=== PATIENT | female | born 1925 | race Caucasian/White ===

== ENCOUNTER 2017-03-22 16:50 | Emergency (ER) | payer MEDICARE ==
[2017-03-22 16:56] VITALS: RESP 18
--- NOTE | 2017-03-22 17:49 | ED ---
General Adult HPI - General Chief complaint: Head Injury Stated complaint: Fall-Head Pain Time Seen by Provider: 03/22/17 17:12 Source: patient, family, RN notes reviewed Mode of arrival: wheelchair Limitations: no limitations - History of Present Illness Initial comments: Patient 89-year-old female who presents emergency room today with a chief complaint of a fall and head injury that occurred just prior to arrival. She does admit that she missed a step outside: [place] left side. She does admit to pain to the left knee, left wrist, left elbow, left shoulder. Also admits to contusion and some bruising to the left side of her forehead and face. Patient states he was no loss consciousness. She denies any other complaints or symptoms. Patient denies any recent fever, chills, shortness of breath, chest pain, back pain, abdominal pain, nausea or vomiting, visual changes, or any other complaints. - Related Data Home Medications Medication Instructions Recorded Confirmed Citalopram Hydrobromide [CeleXA] 10 mg PO DAILY 11/09/13 03/22/17 Donepezil [Aricept] 10 mg PO HS 11/09/13 03/22/17 Memantine [Namenda] 10 mg PO BID 11/09/13 03/22/17 Olmesartan [Benicar] 20 mg PO DAILY 11/26/13 03/22/17 Albuterol Inhaler [Ventolin Hfa 2 puff INHALATION RT-Q4H PRN 03/22/17 03/22/17 Inhaler] Albuterol Nebulized [Ventolin 2.5 mg INHALATION RT-BID PRN 03/22/17 03/22/17 Nebulized] Calcium Carbonate [Calcium] 600 mg PO DAILY 03/22/17 03/22/17 Cetirizine HCl [Zyrtec] 10 mg PO DAILY 03/22/17 03/22/17 Coconut Oil 1 tab PO DAILY 03/22/17 03/22/17 Cranberry Fruit Concentrate [Azo 250 mg PO DAILY 03/22/17 03/22/17 Cranberry] L.acidoph,Paracasei, B.lactis 1 cap PO DAILY 03/22/17 03/22/17 [Probiotic] Montelukast [Singulair] 10 mg PO HS 11/25/17 11/25/17 Multivitamins, Thera [Multivitamin 1 tab PO DAILY 03/22/17 03/22/17 (formulary)] Allergies Allergy/AdvReac Type Severity Reaction Status Date / Time naproxen [From Aleve] Allergy Rash/Hives Verified 03/22/17 17:08 morphine AdvReac Itching Verified 03/22/17 17:08 Review of Systems ROS Statement: Those systems with pertinent positive or pertinent negative responses have been documented in the HPI. ROS Other: All systems not noted in ROS Statement are negative. Past Medical History Past Medical History: Dementia, GERD/Reflux, Hypertension Additional Past Medical History / Comment(s): left knee pain, back fx, History of Any Multi-Drug Resistant Organisms: None Reported Past Surgical History: Appendectomy, Cholecystectomy Past Anesthesia/Blood Transfusion Reactions: No Reported Reaction Past Psychological History: Depression Smoking Status: Never smoker Past Alcohol Use History: None Reported Past Drug Use History: None Reported General Exam - General Exam Comments Initial Comments: General: The patient is awake and alert, in no distress, and does not appear acutely ill. Eye: Pupils are equal, round and reactive to light, extra-ocular movements are intact. No nystagmus. There is normal conjunctiva bilaterally. No signs of icterus. Ears, nose, mouth and throat: There are moist mucous membranes and no oral lesions. Neck: The neck is supple, there is no tenderness or JVD. Cardiovascular: There is a regular rate and rhythm. No murmur, rub or gallop is appreciated. Respiratory: Lungs are clear to auscultation, respirations are non-labored, breath sounds are equal. No wheezes, stridor, rales, or rhonchi. Musculoskeletal: Mild swelling over the lateral anterior aspect of the left knee. Locally tender anteriorly no other bony tenderness to the left lower extremity. No tenderness to the left hip or ankle. Mildly tender over the distal radius. Shows full range of motion of left shoulder, elbow, wrist and hand. Locally tender over the distal radius. Mild tenderness to the posterior olecranon. Mild tenderness to the anterior aspect of the left shoulder. Normal appearance of the cervical, thoracic, lumbar spine with no step-offs deformities. No tenderness midline in these areas. Patient does have some swelling bruising to the left side of forehead. Sensations intact pulses equal bilaterally 2+. Neurological: A&O x 3. CN II-XII intact, There are no obvious motor or sensory deficits. Coordination appears grossly intact. Speech is normal. Skin: Skin is warm and dry and no rashes or lesions are noted. Psychiatric: Cooperative, appropriate mood & affect, normal judgment. Limitations: no limitations Course Vital Signs 03/22/17 16:50 Temperature 98.3 F Pulse Rate 80 Respiratory 18 Rate Blood Pressure 188/84 O2 Sat by Pulse 97 Oximetry Medical Decision Making - Medical Decision Making Case discussed in detail with attending physician Dr. Smith. Patient's CT of the head, neck, facial bones negative for any acute abnormalities. Patient's x- rays of the left wrist, elbow, and shoulder were negative for any acute abnormality. Patient's x-ray of the left knee shows possible sprain versus loose body. Patient been ambulatory here in emergency room. [place] to be old injury. Patient will be discharged home. Signs and symptoms of concussion were discussed with the patient and her daughters at bedside. Patient given Tylenol prior to discharge. Advised that if any symptoms increase or worsen that she should follow family doctor or return here to emergency room. Patient and family state understanding and are in agreement. Disposition Clinical Impression: Fall, Knee contusion, Wrist sprain, Head injury Disposition: HOME SELF-CARE Condition: Good Instructions: Concussion (ED) Additional Instructions: Please use medication as discussed. Please follow-up with family doctor in the next 2 days of symptoms have not improved. Please return to emergency room if the symptoms increase or worsen or for any other concerns. Referrals: Geo Mccabe MD [Primary Care Provider] - 1-2 days Time of Disposition: 18:29
--- NOTE | 2017-03-22 17:53 | CT ---
EXAMINATION TYPE: CT brain basil wo con DATE OF EXAM: 03/22/2017 COMPARISON: 05/27/2015 HISTORY: 89-year-old female with pain after Fall injury. CT DLP: 1312.3 mGycm Automated exposure control for dose reduction was used. Technique: Examination of the head was done in axial plane without intravenous contrast. Coronal and sagittal reconstructions performed. CT of the cervical spine was obtained in axial plane without intravenous injection of contrast mater ial. Coronal and sagittal reformatted images were obtained from the axial views for evaluation of f ractures, spinal alignment and canal. FINDINGS: Head: There is no evidence of acute intracranial hemorrhage, acute ischemic changes, mass, mass-effect, or extra-axial fluid collection. There is no effacement of cerebral sulci or basal subarachnoid cister ns. There is no hydrocephalus. There is no midline shift. [place]-white matter distinction is preserv ed. Mild age-related cerebral cortical volume loss. Mild apical scarring calcifications in the carotid si phons. Scleral banding on the right. Rightward nasal septal deviation. Mild mucosal thickening ethmoid air c ells. Mastoid air cells are well pneumatized. No calvarial fracture. Cervical spine: Retropharyngeal course of the ICAs. Multiple moderate disc/endplate degenerative changes especially in the mid to lower cervical spine. A lignment maintained. No acute fracture of the cervical spine. No evident spinal canal stenosis. Scattered facet and uncovertebral joint arthropathy resulting in variable mild neuroforaminal narrowi ng suggested on the left at C5-C6. Chronic heterotopic ossification along the supraspinous ligament opposite C7. Sagittal and coronal reformatted images confirm above findings. COMBINED IMPRESSION: 1. No acute intracranial abnormality seen. 2. No acute fracture or malalignment of the cervical spine. Moderate spondylotic change. 3. Facial bones to be reported separately.
--- NOTE | 2017-03-22 17:56 | CT ---
EXAMINATION TYPE: CT facial bones wo con DATE OF EXAM: 03/22/2017 COMPARISON: 05/27/2015 HISTORY: 89-year-old female with pain after Fall injury. TECHNIQUE: Contiguous axial scanning of the facial bones without IV contrast. Coronal reconstructions performed. CT DLP: 630.3 mGycm Automated exposure control for dose reduction was used. FINDINGS: Right-sided scleral banding. Rightward nasal septal deviation. Mild mucosal thickening ethmoid air ce lls. Orbits and globes, facial bones, nasal bone, and mandible appear intact. Degenerative changes of the TMJs. The zygomatic arches and pterygoid plates are intact. IMPRESSION: NO ACUTE FACIAL BONE FRACTURE. MILD CHRONIC ETHMOID SINUS DISEASE AND RIGHTWARD NASAL SEPTAL DEVIATIO N. PRIOR RIGHT-SIDED SCLERAL BANDING. BILATERAL TMJ OA.
--- NOTE | 2017-03-22 18:06 | XR ---
EXAMINATION TYPE: 3 views left shoulder. 2 views left elbow. 4 views left wrist DATE OF EXAM: 03/22/2017 COMPARISON: NONE HISTORY: 89-year-old female with pain after fall FINDINGS: Left shoulder: AC joint appears intact. Subacromial space is preserved. No acute fracture, subluxation, or dislocati on seen. Visualized left hemithorax is clear. Left elbow: No elbow joint effusion. No acute fracture or dislocation seen. Wrist: Moderate to advanced degenerative changes at the base of the thumb. Some subtle TFC and synovial calc ifications are noted and could be idiopathic or related to CPPD. The radiocarpal and distal radioulna r joints as well as the midcarpal compartment appear intact. No acute fracture or dislocation. IMPRESSION: 1. Left shoulder: No acute osseous abnormality seen. 2. Left elbow: No acute osseous abnormality seen. 3. Wrist: Moderate to advanced osteoarthritic changes at the base of the thumb. No acute osseous abno rmality seen.
--- NOTE | 2017-03-22 18:08 | XR ---
EXAMINATION TYPE: XR knee complete LT DATE OF EXAM: 03/22/2017 COMPARISON: NONE HISTORY: 89-year-old female with pain after fall TECHNIQUE: 3 views FINDINGS: Moderate loss of cartilage and joint space within the medial compartment with marginal spurring. Trac e knee joint effusion nonspecific. There is either a 1 cm loose body or intracondylar spur just below the patella on the lateral view. No acute fracture, subluxation, or dislocation seen. IMPRESSION: 1. At least moderate medial compartmental osteoarthrosis. 2. Either a 1 cm loose body or intracondylar spur just below the patella on the lateral view. 3. No acute osseous abnormality seen.
[2017-03-22] MEDS ORDERED: ACETAMINOPHEN TAB 325 MG TAB PO STA (18:27)
[2017-03-22 18:59] VITALS: BP 167/79; PULSE 75; TEMP 98.2
== END 2017-03-22 18:58 | disposition home or self-care (01) ==
LOC: EC 16:50
DX: S63.502A Unspecified sprain of left wrist, initial encounter (principal); S00.83XA Contusion of other part of head, initial encounter; S80.02XA Contusion of left knee, initial encounter; M25.522 Pain in left elbow; M25.512 Pain in left shoulder; F03.90 Unspecified dementia, unspecified severity, without behavioral disturbance, psychotic disturbance, mood disturbance, and anxiety; F32.9 Major depressive disorder, single episode, unspecified; Z79.899 Other long term (current) drug therapy; Z88.5 Allergy status to narcotic agent; Z88.6 Allergy status to analgesic agent; W19.XXXA Unspecified fall, initial encounter; Y93.01 Activity, walking, marching and hiking; Y92.89 Other specified places as the place of occurrence of the external cause
CPT/HCPCS: 70450; 70486; 72125; 99284

== ENCOUNTER → 2017-04-23 | Outpatient (CLI) | payer MEDICARE ==
--- NOTE | 2017-04-23 16:51 | CT ---
EXAMINATION TYPE: CT chest wo con DATE OF EXAM: 04/23/2017 COMPARISON: Chest x-ray April 14, 2017 and older studies. HISTORY: Cough x 8-[address] DLP: 187.00 mGycm. Automated Exposure Control for Dose Reduction was Utilized. TECHNIQUE: CT scan of the thorax is performed without IV contrast. High resolution protocol with 1 m m sequences obtained at 10 mm intervals in supine and prone positioning. FINDINGS: LUNGS: Respiratory motion artifact is seen making evaluation suboptimal. There is background mild to moderate emphysematous change. There are some peripheral reticulation and fibrosis in the lower lungs bilaterally. No pleural effusion or pneumothorax is seen. No significant bronchiectasis is identifie d. No worrisome parenchymal mass is seen. No suspicious consolidation is noted. MEDIASTINUM: Lack of IV contrast is noted to limit evaluation for mediastinal and especially hilar a denopathy. There are no definitive greater than 1 cm hilar or mediastinal lymph nodes. No cardiomeg russell or pericardial effusion is seen. Some coronary artery calcification is present which is noted mar ker for coronary artery disease. OTHER: There is a millimeter calcified splenic artery aneurysm in hilum on axial image 46 series 9. T here is simple appearing hepatic cyst posterior liver. Cholecystectomy clips are present. There is la rge exophytic cyst right kidney partially imaged on image 51 series 9. There is moderate multilevel s purring in thoracic spine.. IMPRESSION: Backwall mild to moderate emphysematous change with chronic fibrosis in the periphery of the lower lungs. No suspicious acute pulmonary process.
== END | disposition home or self-care (01) ==
LOC: RADCTMAIN 16:19
PROVIDERS: ATTEND Internal Medicine Critical Care Medicine
DX: J43.9 Emphysema, unspecified (principal); J84.10 Pulmonary fibrosis, unspecified
CPT/HCPCS: 71250

== ENCOUNTER 2017-05-09 16:40 | Inpatient (IN) | payer MEDICARE ==
[2017-05-09] MEDS ORDERED: SODIUM CHLORIDE 0.9% 1,000 ML IV STA ×2 (16:47)
[2017-05-09] MEDS ORDERED: ACETAMINOPHEN IV (For NPO) 1,000 MG in EMPTY BAG 1 BAG IVPB STA (16:47)
[2017-05-09 17:25] LABS: HCT 35.3 % (34.0-46.0); HGB 11.9 gm/dL (11.4-16.0); MCH 29.5 pg (25.0-35.0); MCHC 33.7 g/dL (31.0-37.0); MCV 87.5 fL (80.0-100.0); RBC 4.04 m/uL (3.80-5.40); WBC 5.6 k/uL (3.8-10.6)
[2017-05-09 17:26] LABS: Appearance,Urine Clear (Clear); Basophils # (A) 0.1 k/uL (0-0.2); Basophils % (A) 1 %; Bilirubin,Urine Negative (Negative); Blood,Urine Negative (Negative); Color,Urine Light Yellow; Eosinophils # (A) 0.2 k/uL (0-0.7); Eosinophils % (A) 3 %; Glucose,Urine (UA) Negative (Negative); Ketones,Urine Negative (Negative); Leukocyte Esterase,Urine Negative (Negative); Lymphocytes % (A) 35 %; Mean Platelet Volume 6.1; Monocytes # (A) 0.4 k/uL (0-1.0); Monocytes % (A) 7 %; Neutrophils # (A) 2.7 k/uL (1.3-7.7); Neutrophils % (A) 49 %; Nitrite,Urine Negative (Negative); PH, Urine 6.5 (5.0-8.0); Platelet Count 360 k/uL (150-450); Protein,Urine Negative (Negative); RDW 13.5 % (11.5-15.5); Specific Gravity,Urine 1.007 (1.001-1.035); Urobilinogen,Urine <2.0 mg/dL (<2.0)
[2017-05-09 17:32] LABS: Partial Thromboplastin Time 22.7 sec (22.0-30.0); Prothrombin Time 9.8 sec (9.0-12.0)
[2017-05-09 17:40] LABS: Albumin 4.2 g/dL (3.5-5.0); Calcium 9.8 mg/dL (8.4-10.2); Potassium 5.5 mmol/L (3.5-5.1); Total Bilirubin 0.2 mg/dL (0.2-1.3); Total Protein 7.4 g/dL (6.3-8.2)
--- NOTE | 2017-05-09 17:40 | XR ---
EXAMINATION TYPE: XR chest 2V DATE OF EXAM: 05/09/2017 COMPARISON: Prior chest x-ray 04/14/[address] chest 04/23/2017 HISTORY: Chest pain and shortness of breath TECHNIQUE: Frontal and lateral views of the chest are obtained. FINDINGS: There is no focal air space opacity, pleural effusion, or pneumothorax seen. The cardiac silhouette size is within normal limits. There is increased AP diameter of the chest, prominent lung volumes suggesting underlying COPD. Interstitial lung disease is again noted. The aorta is dense and tortuous. There are overlying cardiac leads. The osseous structures are intact. IMPRESSION: Interstitial lung disease and emphysema
--- NOTE | 2017-05-09 17:49 | ED ---
General Adult HPI - General Chief complaint: Chest Pain Stated complaint: Chest Pain Time Seen by Provider: 05/09/17 16:46 Source: patient, family, RN notes reviewed, old records reviewed Mode of arrival: wheelchair Limitations: no limitations - History of Present Illness Initial comments: This is an 89-year-old female to the ER for evaluation today. Patient's coming in for evaluation of chest pain chest pain chest tightness. Patient has recent history of urinary tract infection on antibiotics, Bactrim. Patient does have history of some lung disease and breathing issues. Patient was sent in the ER today for evaluation secondary to fever, patient states she feels weak and is having difficulty breathing - Related Data Home Medications Medication Instructions Recorded Confirmed Citalopram Hydrobromide [CeleXA] 10 mg PO DAILY 11/09/13 05/09/17 Donepezil [Aricept] 10 mg PO HS 11/09/13 05/09/17 Memantine [Namenda] 10 mg PO BID 11/09/13 05/09/17 Olmesartan [Benicar] 20 mg PO DAILY 11/26/13 05/09/17 Albuterol Inhaler [Ventolin Hfa 2 puff INHALATION RT-Q4H PRN 03/22/17 05/09/17 Inhaler] Albuterol Nebulized [Ventolin 2.5 mg INHALATION RT-BID PRN 03/22/17 05/09/17 Nebulized] Calcium Carbonate [Calcium] 600 mg PO DAILY 03/22/17 05/09/17 Cetirizine HCl [Zyrtec] 10 mg PO DAILY 03/22/17 05/09/17 Coconut Oil 1 tab PO DAILY 03/22/17 05/09/17 Cranberry Fruit Concentrate [Azo 250 mg PO DAILY 03/22/17 05/09/17 Cranberry] L.acidoph,Paracasei, B.lactis 1 cap PO DAILY 03/22/17 05/09/17 [Probiotic] Montelukast [Singulair] 10 mg PO HS 03/22/17 05/09/17 Multivitamins, Thera [Multivitamin 1 tab PO DAILY 03/22/17 05/09/17 (formulary)] Fluticasone/Salmeterol [Advair 1 puff INHALATION RT-BID 05/09/17 05/09/17 250-50 Diskus] Hydrocodone/Chlorphen P-Stirex 5 ml PO Q12HR PRN 05/09/17 05/09/17 [Tussionex] Sulfamethox-Tmp 800-160Mg [Bactrim 1 tab PO Q12HR 05/09/17 05/09/17 DS 800-160 mg] Allergies Allergy/AdvReac Type Severity Reaction Status Date / Time morphine AdvReac Itching Verified 05/09/17 17:25 naproxen [From Aleve] AdvReac Itching Verified 05/09/17 17:25 Review of Systems ROS Statement: Those systems with pertinent positive or pertinent negative responses have been documented in the HPI. ROS Other: All systems not noted in ROS Statement are negative. Past Medical History Past Medical History: Dementia, GERD/Reflux, Hypertension Additional Past Medical History / Comment(s): left knee pain, back fx, History of Any Multi-Drug Resistant Organisms: None Reported Past Surgical History: Appendectomy, Cholecystectomy Past Anesthesia/Blood Transfusion Reactions: No Reported Reaction Past Psychological History: Depression Smoking Status: Never smoker Past Alcohol Use History: None Reported Past Drug Use History: None Reported General Exam Limitations: no limitations General appearance: alert, in no apparent distress Head exam: Present: atraumatic, normocephalic, normal inspection Eye exam: Present: normal appearance, PERRL, EOMI. Absent: scleral icterus, conjunctival injection, periorbital swelling ENT exam: Present: normal exam, mucous membranes moist Neck exam: Present: normal inspection. Absent: tenderness, meningismus, lymphadenopathy Respiratory exam: Present: normal lung sounds bilaterally. Absent: respiratory distress, wheezes, rales, rhonchi, stridor Cardiovascular Exam: Present: regular rate, normal rhythm, normal heart sounds. Absent: systolic murmur, diastolic murmur, rubs, gallop, clicks GI/Abdominal exam: Present: soft, normal bowel sounds. Absent: distended, tenderness, guarding, rebound, rigid Extremities exam: Present: normal inspection, full ROM, normal capillary refill. Absent: tenderness, pedal edema, joint swelling, calf tenderness Back exam: Present: normal inspection Neurological exam: Present: alert, oriented X3, CN II-XII intact Psychiatric exam: Present: normal affect, normal mood Skin exam: Present: warm, dry, intact, normal color. Absent: rash Course Vital Signs 05/09/17 05/09/17 05/09/17 16:41 17:50 18:20 Temperature 101.3 F H Pulse Rate 84 70 Respiratory 18 20 Rate Blood Pressure 146/70 O2 Sat by Pulse 97 Oximetry EKG Findings - EKG Comments: EKG Findings:: EKG shows sinus rhythm rate of 77, NC 252, QRS 118, QTc 461 Medical Decision Making - Medical Decision Making 89 female DEL with cough shortness of breath and fever. Positive pneumonia, patient recently treated for outpatient urinary tract infection, patient to be admitted for IV antibiotics, breathing treatments and fever control. - Lab Data Result diagrams: 05/09/17 17:00 05/09/17 17:00 Lab Results 05/09/17 05/09/17 05/09/17 Range/Units 17:00 17:00 17:00 WBC 5.6 (3.8-10.6) k/uL RBC 4.04 (3.80-5.40) m/uL Hgb 11.9 (11.4-16.0) gm/dL Hct 35.3 (34.0-46.0) % MCV 87.5 (80.0-100.0) fL MCH 29.5 (25.0-35.0) pg MCHC 33.7 (31.0-37.0) g/dL RDW 13.5 (11.5-15.5) % Plt Count 360 (150-450) k/uL Neutrophils % 49 % Lymphocytes % 35 % Monocytes % 7 % Eosinophils % 3 % Basophils % 1 % Neutrophils # 2.7 (1.3-7.7) k/uL Lymphocytes # 2.0 (1.0-4.8) k/uL Monocytes # 0.4 (0-1.0) k/uL Eosinophils # 0.2 (0-0.7) k/uL Basophils # 0.1 (0-0.2) k/uL PT (9.0-12.0) sec INR (<1.2) APTT (22.0-30.0) sec Sodium 135 L (137-145) mmol/L Potassium 5.5 H (3.5-5.1) mmol/L Chloride 102 (98-107) mmol/L Carbon Dioxide 21 L (22-30) mmol/L Anion Gap 12 mmol/L BUN 16 (7-17) mg/dL Creatinine 1.10 H (0.52-1.04) mg/dL Est GFR (MDRD) Af Amer 57 (>60 ml/min/1.73 sqM) Est GFR (MDRD) Non-Af 47 (>60 ml/min/1.73 sqM) Glucose 101 H (74-99) mg/dL Plasma Lactic Acid Eddi 2.9 H* (0.7-2.0) mmol/L Calcium 9.8 (8.4-10.2) mg/dL Total Bilirubin 0.2 (0.2-1.3) mg/dL AST 37 H (14-36) U/L ALT 39 (9-52) U/L Alkaline Phosphatase 82 (38-126) U/L Total Protein 7.4 (6.3-8.2) g/dL Albumin 4.2 (3.5-5.0) g/dL Urine Color Urine Appearance (Clear) Urine pH (5.0-8.0) Ur Specific Marshall (1.001-1.035) Urine Protein (Negative) Urine Glucose (UA) (Negative) Urine Ketones (Negative) Urine Blood (Negative) Urine Nitrite (Negative) Urine Bilirubin (Negative) Urine Urobilinogen (<2.0) mg/dL Ur Leukocyte Esterase (Negative) Influenza Type A RNA (Not Detectd) Influenza Type B (PCR) (Not Detectd) 05/09/17 05/09/17 05/09/17 Range/Units 17:00 17:00 17:00 WBC (3.8-10.6) k/uL RBC (3.80-5.40) m/uL Hgb (11.4-16.0) gm/dL Hct (34.0-46.0) % MCV (80.0-100.0) fL MCH (25.0-35.0) pg MCHC (31.0-37.0) g/dL RDW (11.5-15.5) % Plt Count (150-450) k/uL Neutrophils % % Lymphocytes % % Monocytes % % Eosinophils % % Basophils % % Neutrophils # (1.3-7.7) k/uL Lymphocytes # (1.0-4.8) k/uL Monocytes # (0-1.0) k/uL Eosinophils # (0-0.7) k/uL Basophils # (0-0.2) k/uL PT 9.8 (9.0-12.0) sec INR 1.0 (<1.2) APTT 22.7 (22.0-30.0) sec Sodium (137-145) mmol/L Potassium (3.5-5.1) mmol/L Chloride (98-107) mmol/L Carbon Dioxide (22-30) mmol/L Anion Gap mmol/L BUN (7-17) mg/dL Creatinine (0.52-1.04) mg/dL Est GFR (MDRD) Af Amer (>60 ml/min/1.73 sqM) Est GFR (MDRD) Non-Af (>60 ml/min/1.73 sqM) Glucose (74-99) mg/dL Plasma Lactic Acid Eddi (0.7-2.0) mmol/L Calcium (8.4-10.2) mg/dL Total Bilirubin (0.2-1.3) mg/dL AST (14-36) U/L ALT (9-52) U/L Alkaline Phosphatase (38-126) U/L Total Protein (6.3-8.2) g/dL Albumin (3.5-5.0) g/dL Urine Color Light Yellow Urine Appearance Clear (Clear) Urine pH 6.5 (5.0-8.0) Ur Specific Marshall 1.007 (1.001-1.035) Urine Protein Negative (Negative) Urine Glucose (UA) Negative (Negative) Urine Ketones Negative (Negative) Urine Blood Negative (Negative) Urine Nitrite Negative (Negative) Urine Bilirubin Negative (Negative) Urine Urobilinogen <2.0 (<2.0) mg/dL Ur Leukocyte Esterase Negative (Negative) Influenza Type A RNA Not Detected (Not Detectd) Influenza Type B (PCR) Not Detected (Not Detectd) - Radiology Data Radiology results: report reviewed (Chest x-ray shows underlying pneumonia), image reviewed Disposition Clinical Impression: Atypical chest pain, Emphysema with chronic bronchitis, Fever, Community acquired pneumonia Disposition: ADMITTED IP TO THIS [facility] Condition: Fair Referrals: Geo Mccabe MD [Primary Care Provider] - 1-2 days
[2017-05-09] MEDS ORDERED: methylPREDNISolone SOD SUCCI 125 MG/2 ML VIAL IV STA (18:09)
[2017-05-09] MEDS ORDERED: IPRATROPIUM-ALBUTEROL 3 ML NEB INHALATION STA (18:09)
[2017-05-09] MEDS ORDERED: AZITHROMYCIN 500 MG in SODIUM CHLORIDE 0.9% 250 ML IVPB STA (18:29)
[2017-05-09] MEDS ORDERED: cefTRIAXone IN SWFI 1,000 MG/10 ML SYRINGE IVP STA (18:29)
[2017-05-09] MEDS ORDERED: PNEUMONIA PROTOCOL UTILIZED 1 EACH MISC PO PRN (18:29)
[2017-05-09] MEDS: SODIUM CHLORIDE 0.9% 1,000 ML IV SCH (19:57)
[2017-05-09 20:44] VITALS: BMI 29.5
[2017-05-09] MEDS ORDERED: CHLORPHEN-HYDROcod 8-10mg/5ml 5 ML ORAL.SYRG PO PRN (21:39)
[2017-05-09] MEDS ORDERED: ALBUTEROL NEBULIZED 2.5 MG/3 ML INHALATION PRN (21:39)
[2017-05-09] MEDS ORDERED: PNEUMOCOCCAL VACC-PNEUMOVAX 23 25 MCG/0.5 ML VIAL IM ONE (21:45)
[2017-05-09] MEDS: DONEPEZIL 10 MG TAB PO SCH (22:24)
[2017-05-09] MEDS: MEMANTINE 10 MG TAB PO SCH (22:24)
[2017-05-09] MEDS: MONTELUKAST 10 MG TAB PO SCH (22:24)
[2017-05-10] MEDS: SODIUM CHLORIDE 0.9% 1,000 ML IV SCH ×2 (05:47→19:42)
--- NOTE | 2017-05-10 07:10 | XR ---
EXAMINATION TYPE: XR chest 2V DATE OF EXAM: 05/10/2017 HISTORY: pneumonia. REFERENCE: Previous study dated 05/09/2017. FINDINGS: The lungs are overinflated. Lungs are clear. Pleural space are clear. The heart is not enla rged. IMPRESSION: COPD.
[2017-05-10] MEDS: LACTOBACILLUS ACIDOPH & BULGAR 1 EACH PACKET PO SCH (07:55)
[2017-05-10] MEDS: LOSARTAN 50 MG TAB PO SCH (07:55)
[2017-05-10] MEDS: CITALOPRAM HYDROBROMIDE 10 MG TAB PO SCH (07:55)
[2017-05-10] MEDS: CALCIUM CARBONATE 500 MG CHEWABLE PO SCH (07:55)
[2017-05-10] MEDS: AZITHROMYCIN 500 MG TAB PO SCH (07:55)
[2017-05-10] MEDS: MEMANTINE 10 MG TAB PO SCH ×2 (07:56→20:29)
[2017-05-10] MEDS: COCONUT OIL PO SCH (07:56)
[2017-05-10] MEDS: ENOXAPARIN 40 MG/0.4 ML SYRINGE SQ SCH (07:56)
[2017-05-10] MEDS: LORATADINE 10 MG TAB PO SCH (07:57)
[2017-05-10] MEDS: MULTIVITAMINS, THERA 1 EACH TAB PO SCH (07:57)
[2017-05-10] MEDS: CRANBERRY PO SCH (07:57)
[2017-05-10] MEDS ORDERED: SYMBICORT 80-4.5 MCG INHALER INHALATION SCH (08:00)
[2017-05-10] MEDS: IPRATROPIUM-ALBUTEROL 3 ML NEB INHALATION PRN ×4 (08:04→19:50)
--- NOTE | 2017-05-10 09:47 | P.CNPUL ---
History of Present Illness Consult date: 05/10/17 Requesting physician: Adrian Benson Reason for consult: dyspnea, cough, asthma Chief complaint: Shortness of breath, cough, and wheezing. History of present illness: This is an 89-year-old female, nonsmoker, questionable history of asthma or underlying COPD, but the patient never smoked. Patient is maintained at home on albuterol nebulized and Ventolin HFA. Patient had a recent urinary tract infection and she was placed on Bactrim. Seen in the ER yesterday with a few days' history of cough wheezing shortness of breath, and some difficulty breathing. She felt generally weak, no fever, no chills, no aches and pains, chest x-ray showed no evidence of pneumonia, but there is slight prominence of the interstitial markings. No evidence of congestive heart failure. Patient was admitted and this consult was initiated. Presently the patient continues to cough, not wheezing, no fever no chills no hemoptysis no chest pain no headache no blurred vision no dizziness no nausea no vomiting no abdominal pain no melena no hematemesis is no dysuria and no frequency no urgency. Looking at the list of her medications, patient clearly has history of asthma since she's been maintained on albuterol and Singulair, she also has symptoms of multiple ALLERGIES and ALLERGIC rhinitis. Review of Systems 14 point review of systems were obtained. The first pertinent positives and negatives in HPI otherwise remaining systems are negative. Past Medical History Past Medical History: Dementia, GERD/Reflux, Hypertension, Pneumonia Additional Past Medical History / Comment(s): left knee pain, back fx, mild emphysema History of Any Multi-Drug Resistant Organisms: None Reported Past Surgical History: Appendectomy, Cholecystectomy Past Anesthesia/Blood Transfusion Reactions: No Reported Reaction Past Psychological History: Depression Smoking Status: Never smoker Past Alcohol Use History: None Reported Past Drug Use History: None Reported Medications and Allergies Home Medications Medication Instructions Recorded Confirmed Type Citalopram Hydrobromide [CeleXA] 10 mg PO DAILY 11/09/13 05/09/17 History Donepezil [Aricept] 10 mg PO HS 11/09/13 05/09/17 History Memantine [Namenda] 10 mg PO BID 11/09/13 05/09/17 History Olmesartan [Benicar] 20 mg PO DAILY 11/26/13 05/09/17 History Albuterol Inhaler [Ventolin Hfa 2 puff INHALATION RT-Q4H PRN 03/22/17 05/09/17 History Inhaler] Albuterol Nebulized [Ventolin 2.5 mg INHALATION RT-BID PRN 03/22/17 05/09/17 History Nebulized] Calcium Carbonate [Calcium] 600 mg PO DAILY 03/22/17 05/09/17 History Cetirizine HCl [Zyrtec] 10 mg PO DAILY 03/22/17 05/09/17 History Coconut Oil 1 tab PO DAILY 03/22/17 05/09/17 History Cranberry Fruit Concentrate [Azo 250 mg PO DAILY 03/22/17 05/09/17 History Cranberry] L.acidoph,Paracasei, B.lactis 1 cap PO DAILY 03/22/17 05/09/17 History [Probiotic] Montelukast [Singulair] 10 mg PO HS 03/22/17 05/09/17 History Multivitamins, Thera [Multivitamin 1 tab PO DAILY 03/22/17 05/09/17 History (formulary)] Fluticasone/Salmeterol [Advair 1 puff INHALATION RT-BID 05/09/17 05/09/17 History 250-50 Diskus] Hydrocodone/Chlorphen P-Stirex 5 ml PO Q12HR PRN 05/09/17 05/09/17 History [Tussionex] Sulfamethox-Tmp 800-160Mg [Bactrim 1 tab PO Q12HR 05/09/17 05/09/17 History DS 800-160 mg] Allergies Allergy/AdvReac Type Severity Reaction Status Date / Time morphine AdvReac Itching Verified 05/09/17 17:25 naproxen [From Aleve] AdvReac Itching Verified 05/09/17 17:25 Physical Exam Vitals: Vital Signs Temp Pulse Pulse Resp BP BP Pulse Ox 05/10/17 08:18 76 05/10/17 08:04 76 05/10/17 08:00 97.6 F 88 16 146/75 94 L 05/10/17 04:00 97.4 F L 87 18 167/77 96 05/10/17 00:00 97.6 F 82 16 111/50 95 05/09/17 19:57 99.0 F 73 18 135/63 96 05/09/17 19:37 97.0 F L 77 16 131/78 98 05/09/17 18:44 100.0 F H 91 18 151/79 96 05/09/17 18:39 68 05/09/17 18:20 70 05/09/17 17:50 20 05/09/17 17:44 88 16 153/67 96 05/09/17 16:41 101.3 F H 84 18 146/70 97 Intake and Output 05/09/17 05/10/17 05/10/17 22:59 06:59 14:59 Intake Total 360 900 180 Balance 360 900 180 Intake: Intake, IV Titration 900 Amount Sodium Chloride 0.9% 1, 900 000 ml @ 100 mls/hr IV . Q10H [facility] Rx#:[id number] Oral 360 180 Other: Voiding Method Toilet Diaper # Voids 1 1 1 Weight 68.492 kg 68.9 kg Physical Exam: Revealed an 89-year-old female with intermittent episodes of cough, in no distress. HEENT:[Neck is supple.] [No neck masses.] [No thyromegaly.] [No JVD.] Chest: [Clear throughout, no crackles, no rhonchi, slight wheezing on forced expiratory maneuver was noted only. Cardiac Exam: [Normal S1 and S2, no S3 gallop, no murmur.] Abdomen: [Soft, nontender, no megaly, no rebound, no guarding, normal bowel sounds.] Extremities: [No clubbing, no edema, no cyanosis.] Neurological Exam: [No focal neurologic deficit.] Lymphatics: No lymphadenopathy Psychiatric: Normal mood affect and mental status examination. Results - Laboratory Findings CBC and BMP: 05/09/17 17:00 05/09/17 17:00 PT/INR, D-dimer PT 9.8 sec (9.0-12.0) 05/09/17 17:00 INR 1.0 (<1.2) 05/09/17 17:00 Abnormal lab findings: Abnormal Labs 05/09/17 05/09/17 17:00 17:00 Sodium 135 L Potassium 5.5 H Carbon Dioxide 21 L Creatinine 1.10 H Glucose 101 H Plasma Lactic Acid Eddi 2.9 H* AST 37 H - Diagnostic Findings Chest x-ray: image reviewed Assessment and Plan Assessment: Impression: Acute exacerbation of bronchial asthma secondary to tracheobronchitis. No clear-cut evidence of pneumonia noted on the chest x-ray. Multiple comorbidities including depression, dementia, hypertension, ALLERGIC rhinitis, multiple ALLERGIES, recent urinary tract infection, and history of osteoarthritis. Recommendation: Continue present course of antibiotics including Rocephin and Zithromax, continue Pulmicort and DuoNeb updrafts, continue Tussionex, continue methylprednisolone, consider discharge planning in the next 24-48 hours. Continue Singulair. Will follow. Time with Patient: Greater than 30
[2017-05-10] MEDS: ACETAMINOPHEN TAB 325 MG TAB PO PRN ×3 (10:54→21:29)
--- NOTE | 2017-05-10 11:15 | P.HPIM ---
History of Present Illness H&P Date: 05/10/17 Chief Complaint: chest pain this is an 89-year-old female patient of Dr. 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 Patient states that she was disoriented yesterday and this may been going on for some time. She has had a cough for a while as well as sputum production a small amount. She denies any significant shortness of breath. She denies fever or chills and denies sick contacts. She does complain of back pain which is been chronic. She has been treated with Bactrim for urinary tract infection Her son and daughters came to the house and they were concerned and brought her into [facility] emergency center for evaluation. Fever 101.3, lactic acid 2.9 and repeat 1, white count of 5.6. Influenza testing was negative. Urinalysis was clear with nitrate and leukoesterase negative. Chest x-ray showed interstitial lung disease and emphysema and repeat chest x-ray shows COPD.patient was started on azithromycin , ceftriaxone, 1 dose of IV Solu-Medrol and DuoNeb treatments and admitted to the selective care unit. Blood culture and urine culture were obtained. Sputum cultures on collected. Consult was requested with pulmonary medicine. Review of Systems All systems: negative Constitutional: Denies chills, Denies fever Eyes: denies blurred vision, denies pain Ears, nose, mouth and throat: Denies headache, Denies sore throat Cardiovascular: Denies chest pain, Denies edema, Denies leg edema, Denies lightheadedness, Denies shortness of breath, Denies syncope Respiratory: Reports cough, Reports cough with sputum, Denies dyspnea, Denies excessive sputum, Denies hemoptysis, Denies home oxygen Gastrointestinal: Denies abdominal pain, Denies diarrhea, Denies nausea, Denies vomiting Genitourinary: Denies dysuria, Denies hematuria Musculoskeletal: Denies myalgias Integumentary: Denies pruritus, Denies rash Neurological: Reports change in mentation, Denies numbness, Denies weakness Psychiatric: Denies anxiety, Denies depression Endocrine: Denies fatigue, Denies weight change Past Medical History Past Medical History: Asthma, Dementia, GERD/Reflux, Hypertension, Pneumonia Additional Past Medical History / Comment(s): left knee pain, back fx, retinal detachment on the right, ptosis right eye History of Any Multi-Drug Resistant Organisms: None Reported Past Surgical History: Appendectomy, Cholecystectomy Additional Past Surgical History / Comment(s): Bilateral cataract removal and intraocular lens implants Past Anesthesia/Blood Transfusion Reactions: No Reported Reaction Past Psychological History: Depression Smoking Status: Never smoker Past Alcohol Use History: None Reported Additional Past Alcohol Use History / Comment(s): She is a lifelong nonsmoker and denies secondhand smoke exposure. She lives at home in a senior apartment in [place]. No street drug or alcohol use. Past Drug Use History: None Reported - Past Family History Mother Additional Family Medical History / Comment(s): Mother at age 86 from a myocardial infarction and CVA with history of hypertension. Father Additional Family Medical History / Comment(s): Father at age 50 from a myocardial infarction. Brother(s) Additional Family Medical History / Comment(s): One brother from acute myocardial infarction and also had liver transplant and kidney transplant. A second brother had carcinoma of the prostate. A third brother had colon cancer at age 71. Sister(s) Additional Family Medical History / Comment(s): Patient has one sister with COPD and lung cancer. Daughter(s) Additional Family Medical History / Comment(s): Patient has 6 daughters and one has history of lung cancer at age 46, second daughter has history of hypothyroidism. Son has history of diverticular disease. Medications and Allergies Home Medications Medication Instructions Recorded Confirmed Type Citalopram Hydrobromide [CeleXA] 10 mg PO DAILY 11/09/13 05/09/17 History Donepezil [Aricept] 10 mg PO HS 11/09/13 05/09/17 History Memantine [Namenda] 10 mg PO BID 11/09/13 05/09/17 History Olmesartan [Benicar] 20 mg PO DAILY 11/26/13 05/09/17 History Albuterol Inhaler [Ventolin Hfa 2 puff INHALATION RT-Q4H PRN 03/22/17 05/09/17 History Inhaler] Albuterol Nebulized [Ventolin 2.5 mg INHALATION RT-BID PRN 03/22/17 05/09/17 History Nebulized] Calcium Carbonate [Calcium] 600 mg PO DAILY 03/22/17 05/09/17 History Cetirizine HCl [Zyrtec] 10 mg PO DAILY 03/22/17 05/09/17 History Coconut Oil 1 tab PO DAILY 03/22/17 05/09/17 History Cranberry Fruit Concentrate [Azo 250 mg PO DAILY 03/22/17 05/09/17 History Cranberry] L.acidoph,Paracasei, B.lactis 1 cap PO DAILY 03/22/17 05/09/17 History [Probiotic] Montelukast [Singulair] 10 mg PO HS 03/22/17 05/09/17 History Multivitamins, Thera [Multivitamin 1 tab PO DAILY 03/22/17 05/09/17 History (formulary)] Fluticasone/Salmeterol [Advair 1 puff INHALATION RT-BID 05/09/17 05/09/17 History 250-50 Diskus] Hydrocodone/Chlorphen P-Stirex 5 ml PO Q12HR PRN 05/09/17 05/09/17 History [Tussionex] Sulfamethox-Tmp 800-160Mg [Bactrim 1 tab PO Q12HR 05/09/17 05/09/17 History DS 800-160 mg] Allergies Allergy/AdvReac Type Severity Reaction Status Date / Time morphine AdvReac Itching Verified 05/09/17 17:25 naproxen [From Aleve] AdvReac Itching Verified 05/09/17 17:25 Physical Exam Vitals: Vital Signs Temp Pulse Pulse Resp BP BP Pulse Ox 05/10/17 04:00 97.4 F L 87 18 167/77 96 05/10/17 00:00 97.6 F 82 16 111/50 95 05/09/17 19:57 99.0 F 73 18 135/63 96 05/09/17 19:37 97.0 F L 77 16 131/78 98 05/09/17 18:44 100.0 F H 91 18 151/79 96 05/09/17 18:39 68 05/09/17 18:20 70 05/09/17 17:50 20 05/09/17 17:44 88 16 153/67 96 05/09/17 16:41 101.3 F H 84 18 146/70 97 Intake and Output 05/09/17 05/10/17 05/10/17 22:59 06:59 14:59 Intake Total 360 900 Balance 360 900 Intake: Intake, IV Titration 900 Amount Sodium Chloride 0.9% 1, 900 000 ml @ 100 mls/hr IV . Q10H [facility] Rx#:[id number] Oral 360 Other: Voiding Method Toilet Diaper # Voids 1 1 Weight 68.492 kg 68.9 kg Gen: This is an 89-year-old female. She is sitting up in bed appears to be comfortable. No respiratory distress noted. HEENT: Head is atraumatic, normocephalic. Pupils equal, round. Sclerae is anicteric. Ptosis right eye. NECK: Supple. No JVD. No lymphadenopathy. No thyromegaly. LUNGS: A few rhonchi. No expiratory wheeze.. No intercostal retractions. HEART: Regular rate and rhythm. Systolic murmur. ABDOMEN: Soft. Bowel sounds are present. No masses. No tenderness. EXTREMITIES: No pedal edema. No calf tenderness. Dorsalis pedis +2 bilaterally. NEUROLOGICAL: Patient is awake, alert and oriented x3. Cranial nerves 2 through 12 are grossly intact. Results CBC & Chem 7: 05/09/17 17:00 05/09/17 17:00 Labs: Abnormal Lab Results - Last 24 Hours (Table) 05/09/17 05/09/17 Range/Units 17:00 17:00 Sodium 135 L (137-145) mmol/L Potassium 5.5 H (3.5-5.1) mmol/L Carbon Dioxide 21 L (22-30) mmol/L Creatinine 1.10 H (0.52-1.04) mg/dL Glucose 101 H (74-99) mg/dL Plasma Lactic Acid Eddi 2.9 H* (0.7-2.0) mmol/L AST 37 H (14-36) U/L Microbiology - Last 24 Hours (Table) 05/09/17 17:00 Urine Culture - Preliminary Urine,Voided Thrombosis Risk Factor Assmnt - DVT/VTE Prophylaxis DVT/VTE Prophylaxis: Pharmacologic Prophylaxis ordered - Choose All That Apply Any of the Below Risk Factors Present?: Yes Each Factor Represents 1 point: Medical pt on bed rest Other Risk Factors: Yes Each Risk Factor Represents 3 Points: Age 75 years or older Other congenital or acquired thrombophilia - If yes, enter type in comment: No Thrombosis Risk Factor Assessment Total Risk Factor Score: 4 Thrombosis Risk Factor Assessment Level: Moderate Risk Assessment and Plan Plan: 1. Acute exacerbation of bronchial asthma secondary to acute tracheobronchitis without pneumonia. Patient started on azithromycin, ceftriaxone and DuoNeb treatments, Pulmicort, Solu-Medrol 60 mg every 6 hours. Continue Symbicort 2 puffs twice daily, Tussionex, Claritin, Singulair. Consult with Dr. Sarika heard. 2. Hypertension. Continue losartan 100 mg daily. 3. Dementia, continue Aricept. 4. Gastroesophageal reflux disease and GI prophylaxis. Pepcid. 5. DVT prophylaxis. Lovenox daily. Patient will be admitted to the hospital for a minimum of 2 night stay. Discharge plan: Most likely return home in the next 24-48 hours Impression and plan of care have been directed as dictated by the signing physician. Carmen Sutton nurse practitioner acting as scribe for signing physician.
[2017-05-10] MEDS: INSULIN ASPART 100 UNIT/ML 1 ML 10 ML VIAL SQ SCH ×3 (12:43→20:29)
[2017-05-10] MEDS: cefTRIAXone IN SWFI 1,000 MG/10 ML SYRINGE IVP SCH (12:48)
[2017-05-10] MEDS: FAMOTIDINE 20 MG TAB PO SCH (12:49)
[2017-05-10 12:51] LABS: Glucose,Whole Blood 147 mg/dL (75-99)
[2017-05-10] MEDS: methylPREDNISolone SOD SUCCI 125 MG/2 ML VIAL IV SCH ×2 (14:19→16:55)
[2017-05-10 16:46] LABS: Glucose,Whole Blood 122 mg/dL (75-99)
[2017-05-10] MEDS: BUDESONIDE 1 MG/2 ML NEBU INHALATION SCH (19:50)
[2017-05-10 19:58] LABS: Hemoglobin A1C 5.1 % (4.0-6.0)
[2017-05-10 20:08] LABS: Glucose,Whole Blood 169 mg/dL (75-99)
[2017-05-10] MEDS: DONEPEZIL 10 MG TAB PO SCH (20:29)
[2017-05-10] MEDS: MONTELUKAST 10 MG TAB PO SCH (20:29)
[2017-05-10] MEDS: ALPRAZolam 0.25 MG TAB PO PRN (21:29)
[2017-05-11] MEDS: SODIUM CHLORIDE 0.9% 1,000 ML IV SCH ×3 (04:21→15:22)
[2017-05-11 05:53] LABS: Glucose,Whole Blood 137 mg/dL (75-99)
[2017-05-11] MEDS: INSULIN ASPART 100 UNIT/ML 1 ML 10 ML VIAL SQ SCH ×4 (06:41→20:42)
[2017-05-11] MEDS: IPRATROPIUM-ALBUTEROL 3 ML NEB INHALATION PRN ×2 (07:45→12:08)
[2017-05-11] MEDS: BUDESONIDE 1 MG/2 ML NEBU INHALATION SCH ×2 (07:45→19:16)
[2017-05-11] MEDS: cefTRIAXone IN SWFI 1,000 MG/10 ML SYRINGE IVP SCH (08:17)
[2017-05-11] MEDS: ENOXAPARIN 40 MG/0.4 ML SYRINGE SQ SCH (08:19)
[2017-05-11] MEDS: LOSARTAN 50 MG TAB PO SCH (08:20)
[2017-05-11] MEDS: AZITHROMYCIN 500 MG TAB PO SCH (08:20)
[2017-05-11] MEDS: LORATADINE 10 MG TAB PO SCH (08:20)
[2017-05-11] MEDS: MEMANTINE 10 MG TAB PO SCH ×2 (08:20→20:42)
[2017-05-11] MEDS: FAMOTIDINE 20 MG TAB PO SCH (08:20)
[2017-05-11] MEDS: MULTIVITAMINS, THERA 1 EACH TAB PO SCH (08:20)
[2017-05-11] MEDS: LACTOBACILLUS ACIDOPH & BULGAR 1 EACH PACKET PO SCH (08:20)
[2017-05-11] MEDS: CITALOPRAM HYDROBROMIDE 10 MG TAB PO SCH (08:20)
[2017-05-11] MEDS: ALPRAZolam 0.25 MG TAB PO PRN (08:24)
[2017-05-11 08:41] LABS: Anion Gap 5 mmol/L; Blood Urea Nitrogen 16 mg/dL (7-17); Calcium 8.8 mg/dL (8.4-10.2); Carbon Dioxide 24 mmol/L (22-30); Chloride 109 mmol/L (98-107); Glucose 103 mg/dL (74-99); Potassium 4.7 mmol/L (3.5-5.1); Sodium 138 mmol/L (137-145)
[2017-05-11 08:55] LABS: HCT 30.9 % (34.0-46.0); MCHC 31.9 g/dL (31.0-37.0); MCV 91.1 fL (80.0-100.0); Mean Platelet Volume 6.6; Platelet Count 301 k/uL (150-450); RBC 3.39 m/uL (3.80-5.40); RDW 14.7 % (11.5-15.5)
[2017-05-11 08:59] LABS: HGB 9.8 gm/dL (11.4-16.0)
[2017-05-11] MEDS ORDERED: methylPREDNISolone SOD SUCCI 40 MG/ML 1 ML VIAL IV SCH (09:00)
[2017-05-11] MEDS: ACETAMINOPHEN TAB 325 MG TAB PO PRN (10:46)
--- NOTE | 2017-05-11 10:47 | P.PN ---
Subjective Progress Note Date: 05/11/17 Principal diagnosis: acute exacerbation of bronchial asthma and purulent tracheobronchitis. This is an 89-year-old female, nonsmoker, questionable history of asthma or underlying COPD, but the patient never smoked. Patient is maintained at home on albuterol nebulized and Ventolin HFA. Patient had a recent urinary tract infection and she was placed on Bactrim. Seen in the ER yesterday with a few days' history of cough wheezing shortness of breath, and some difficulty breathing. She felt generally weak, no fever, no chills, no aches and pains, chest x-ray showed no evidence of pneumonia, but there is slight prominence of the interstitial markings. No evidence of congestive heart failure. Patient was admitted and this consult was initiated. Presently the patient continues to cough, not wheezing, no fever no chills no hemoptysis no chest pain no headache no blurred vision no dizziness no nausea no vomiting no abdominal pain no melena no hematemesis is no dysuria and no frequency no urgency. Looking at the list of her medications, patient clearly has history of asthma since she's been maintained on albuterol and Singulair, she also has symptoms of multiple ALLERGIES and ALLERGIC rhinitis. Patient was reevaluated today on 05/11/2017, feeling much better, breathing a lot easier, continues to have some occasional cough and some occasional wheezing. On physical examination she sounded very clear, patient is wondering if she is going to be discharged home, from my perspective the patient is cleared for discharge if cleared by her primary admitting physician. Objective - Vital Signs Vital signs: Vital Signs Temp 97.9 F 05/11/17 04:00 Pulse 102 H 05/11/17 08:00 Resp 16 05/11/17 08:00 BP 138/73 05/11/17 08:00 Pulse Ox 96 05/11/17 08:00 Intake & Output 05/10/17 05/11/17 05/11/17 18:59 06:59 18:59 Intake Total 540 100 Output Total 550 Balance 540 -450 Weight 70.9 kg Intake: Oral 540 100 Output: Urine 550 Other: Voiding Method Toilet Toilet Toilet Diaper Diaper Diaper # Voids 1 1 - Exam Physical Exam: Revealed an 89-year-old female with intermittent episodes of cough, in no distress. HEENT:[Neck is supple.] [No neck masses.] [No thyromegaly.] [No JVD.] Chest: [Clear throughout, no crackles, no rhonchi, no wheezing noted today on physical examination. Cardiac Exam: [Normal S1 and S2, no S3 gallop, no murmur.] Abdomen: [Soft, nontender, no megaly, no rebound, no guarding, normal bowel sounds.] Extremities: [No clubbing, no edema, no cyanosis.] Neurological Exam: [No focal neurologic deficit.] Lymphatics: No lymphadenopathy Psychiatric: Normal mood affect and mental status examination. - Labs CBC & Chem 7: 05/11/17 08:10 05/11/17 08:10 Labs: Abnormal Lab Results - Last 24 Hours (Table) 05/10/17 05/10/17 05/10/17 Range/Units 12:40 16:39 20:06 RBC (3.80-5.40) m/uL Hgb (11.4-16.0) gm/dL Hct (34.0-46.0) % Chloride (98-107) mmol/L Glucose (74-99) mg/dL POC Glucose (mg/dL) 147 H 122 H 169 H (75-99) mg/dL 05/11/17 05/11/17 05/11/17 Range/Units 05:48 08:10 08:10 RBC 3.39 L (3.80-5.40) m/uL Hgb 9.8 L D (11.4-16.0) gm/dL Hct 30.9 L (34.0-46.0) % Chloride 109 H (98-107) mmol/L Glucose 103 H (74-99) mg/dL POC Glucose (mg/dL) 137 H (75-99) mg/dL Microbiology - Last 24 Hours (Table) 05/09/17 17:00 Urine Culture - Final Urine,Voided 05/09/17 20:54 Blood Culture - Preliminary Blood No Growth after 24 hours 05/09/17 17:00 Blood Culture - Preliminary Blood No Growth after 24 hours Assessment and Plan Assessment: Impression: Acute exacerbation of bronchial asthma secondary to tracheobronchitis. No clear-cut evidence of pneumonia noted on the chest x-ray. Multiple comorbidities including depression, dementia, hypertension, ALLERGIC rhinitis, multiple ALLERGIES, recent urinary tract infection, and history of osteoarthritis. Recommendation: continue present meds, patient could be switched to oral Zithromax, prednisone burst and taperover a period of 2 weeks., bronchodilators/ inhalers,cleared for discharge planning today if cleared by the admitting physician. Time with Patient: Less than 30
[2017-05-11] MEDS: CALCIUM CARBONATE 500 MG CHEWABLE PO SCH (10:48)
[2017-05-11] MEDS: COCONUT OIL PO SCH (10:48)
[2017-05-11] MEDS: CRANBERRY PO SCH (10:49)
--- NOTE | 2017-05-11 11:18 | P.PN ---
Subjective Progress Note Date: 05/11/17 this is an 89-year-old female patient of Dr. 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 Patient states that she was disoriented yesterday and this may been going on for some time. She has had a cough for a while as well as sputum production a small amount. She denies any significant shortness of breath. She denies fever or chills and denies sick contacts. She does complain of back pain which is been chronic. She has been treated with Bactrim for urinary tract infection Her son and daughters came to the house and they were concerned and brought her into [facility] emergency center for evaluation. Fever 101.3, lactic acid 2.9 and repeat 1, white count of 5.6. Influenza testing was negative. Urinalysis was clear with nitrate and leukoesterase negative. Chest x-ray showed interstitial lung disease and emphysema and repeat chest x-ray shows COPD.patient was started on azithromycin , ceftriaxone, 1 dose of IV Solu-Medrol and DuoNeb treatments and admitted to the selective care unit. Blood culture and urine culture were obtained. Sputum cultures on collected. Consult was requested with pulmonary medicine. 05/11: Blood culture 2 showing no growth after 24 hours and urine culture is been finalized with no growth after 18 hours. Patient has been afebrile since admission. Pulse ox is 97% on room air. Patient had increased anxiety yesterday for which Solu-Medrol was decreased to 40 mg twice daily and Xanax was added. Patient states that she was very shaky and feels better today. Solu -Medrol will be switched over to prednisone. She states her cough is better. She still has phlegm production but not as much. Patient has been stable and will be transferred to the Medr floor with probable discharge tomorrow. Objective - Vital Signs Vital signs: Vital Signs Temp 97.9 F 05/11/17 04:00 Pulse 76 05/11/17 07:45 Resp 18 05/11/17 04:00 BP 118/64 05/11/17 04:00 Pulse Ox 97 05/11/17 04:00 Intake & Output 05/10/17 05/11/1718 18:59 06:59 18:59 Intake Total 540 100 Output Total 550 Balance 540 -450 Weight 70.9 kg Intake: Oral 540 100 Output: Urine 550 Other: Voiding Method Toilet Toilet Diaper Diaper # Voids 1 1 - Exam Gen: This is an 89-year-old female. She is sitting up in bed appears to be comfortable. No respiratory distress noted. HEENT: Head is atraumatic, normocephalic. Pupils equal, round. Sclerae is anicteric. Ptosis right eye. NECK: Supple. No JVD. No lymphadenopathy. No thyromegaly. LUNGS: A few rhonchi. No expiratory wheeze.. No intercostal retractions. HEART: Regular rate and rhythm. Systolic murmur. ABDOMEN: Soft. Bowel sounds are present. No masses. No tenderness. EXTREMITIES: No pedal edema. No calf tenderness. Dorsalis pedis +2 bilaterally. NEUROLOGICAL: Patient is awake, alert and oriented x3. Cranial nerves 2 through 12 are grossly intact. - Labs CBC & Chem 7: 05/11/17 08:10 05/11/17 08:10 Labs: Abnormal Lab Results - Last 24 Hours (Table) 05/10/17 05/10/17 05/10/17 Range/Units 12:40 16:39 20:06 POC Glucose (mg/dL) 147 H 122 H 169 H (75-99) mg/dL 05/11/17 Range/Units 05:48 POC Glucose (mg/dL) 137 H (75-99) mg/dL Microbiology - Last 24 Hours (Table) 05/09/17 17:00 Urine Culture - Final Urine,Voided 05/09/17 20:54 Blood Culture - Preliminary Blood No Growth after 24 hours 05/09/17 17:00 Blood Culture - Preliminary Blood No Growth after 24 hours Assessment and Plan Plan: 1. Acute exacerbation of bronchial asthma secondary to acute tracheobronchitis without pneumonia. Patient started on azithromycin, ceftriaxone and DuoNeb treatments, Pulmicort, Solu-Medrol to prednisone. Continue Symbicort 2 puffs twice daily, Tussionex, Claritin, Singulair. Consult with Dr. Sarika heard. 2. Hypertension. Continue losartan 100 mg daily. 3. Dementia with increased anxiety, continue Aricept. Xanax added & Medrol decreased. 4. Gastroesophageal reflux disease and GI prophylaxis. Pepcid. 5. DVT prophylaxis. Lovenox daily. Patient will be admitted to the hospital for a minimum of 2 night stay. Discharge plan: Home tomorrow Impression and plan of care have been directed as dictated by the signing physician. Carmen Sutton nurse practitioner acting as scribe for signing physician.
[2017-05-11 17:38] LABS: Glucose,Whole Blood 113 mg/dL (75-99)
[2017-05-11 17:57] VITALS: RESP 18
[2017-05-11 20:31] LABS: Glucose,Whole Blood 166 mg/dL (75-99)
[2017-05-11] MEDS: HYDROCORTISONE SUPPOSITORY 25 MG SUPP RECTAL SCH (20:42)
[2017-05-11] MEDS: MONTELUKAST 10 MG TAB PO SCH (20:42)
[2017-05-11] MEDS: DONEPEZIL 10 MG TAB PO SCH (20:42)
[2017-05-11 21:40] VITALS: TEMP 98.6
[2017-05-12 06:53] LABS: Glucose,Whole Blood 87 mg/dL (75-99)
[2017-05-12] MEDS: BUDESONIDE 1 MG/2 ML NEBU INHALATION SCH (07:30)
[2017-05-12] MEDS: IPRATROPIUM-ALBUTEROL 3 ML NEB INHALATION PRN ×2 (07:30→10:59)
[2017-05-12 08:44] VITALS: BP 153/80
[2017-05-12] MEDS ORDERED: predniSONE 20 MG TAB PO SCH (09:00)
[2017-05-12] MEDS: INSULIN ASPART 100 UNIT/ML 1 ML 10 ML VIAL SQ SCH (09:19)
[2017-05-12] MEDS: cefTRIAXone IN SWFI 1,000 MG/10 ML SYRINGE IVP SCH (09:25)
[2017-05-12] MEDS: CITALOPRAM HYDROBROMIDE 10 MG TAB PO SCH (09:25)
[2017-05-12] MEDS: ENOXAPARIN 40 MG/0.4 ML SYRINGE SQ SCH (09:25)
[2017-05-12] MEDS: CRANBERRY PO SCH (09:26)
[2017-05-12] MEDS: AZITHROMYCIN 500 MG TAB PO SCH (09:26)
[2017-05-12] MEDS: COCONUT OIL PO SCH (09:26)
[2017-05-12] MEDS: CALCIUM CARBONATE 500 MG CHEWABLE PO SCH (09:26)
[2017-05-12] MEDS: HYDROCORTISONE SUPPOSITORY 25 MG SUPP RECTAL SCH (09:26)
[2017-05-12] MEDS: LOSARTAN 50 MG TAB PO SCH (09:27)
[2017-05-12] MEDS: FAMOTIDINE 20 MG TAB PO SCH (09:27)
[2017-05-12] MEDS: LACTOBACILLUS ACIDOPH & BULGAR 1 EACH PACKET PO SCH (09:27)
[2017-05-12] MEDS: LORATADINE 10 MG TAB PO SCH (09:28)
[2017-05-12] MEDS: MEMANTINE 10 MG TAB PO SCH (09:28)
[2017-05-12] MEDS: MULTIVITAMINS, THERA 1 EACH TAB PO SCH (09:28)
[2017-05-12] MEDS: ACETAMINOPHEN TAB 325 MG TAB PO PRN (09:30)
[2017-05-12 11:03] VITALS: PULSE 74
--- NOTE | 2017-05-12 11:37 | CDI ---
Last Revision, March 2017 Documentation Clarification Form Date: 05/12/2017 11:26:00 AM From: Mindy CopeRUSSELL, CCDS Admit Date: 05/09/2017 6:29:00 PM Patient Name: Ananya Alvarado Visit Number: [id number] Discharge Date: ATTENTION: The Clinical Documentation Specialists (CDI) and [facility] Coding Staff appreciate your assistance in clarifying documentation. Please respond to the clarification below the line at the bottom and electronically sign. The CDI & [facility] Coding staff will review the response and follow-up if needed. Please note: Queries are made part of the Legal Health Record. If you have any questions, please contact the author of this message via ITS. Dr. Nita Baum: Asthma is documented in the ED note, the History & Physical & also the Pulmonary Consult as: "Acute exacerbation of bronchial asthma secondary to tracheobronchitis. Patient history/risk factors: Allergic rhinitis, multiple allergies. Home meds include: Pulmicort, DuoNeb updrafts, Advair INH, Tussionex, Singulair Clinical Indicators: Presented with dyspnea, cough, asthma, sob & wheezing. Radiology: CXR: Interstitial lung dis & emphysema. Repeat: COPD. Vital Signs: T 101.3^, P 84, R 18-20 (cough), BP 146/70, PO 97 2Lnc. Treatment: IV Tylenol, IV fluid 100, IV fluid bolus x1, Albuterol INH, IV Solumedrol, IV Azithromycin, IV Rocephin, O2 2Lnc. In you professional opinion, can you please further specify the asthma diagnosis , if known? With Status asthmaticus Acute lower respiratory infection COPD (specify with or without exacerbation) Chronic obstructive bronchitis Other, please specify Unable to determine Severity: Mild intermittent Mild persistent Moderate persistent Severe persistent Other, please specify Unable to determine Form or Type: Cough variant Childhood Exercise induced bronchospasm Extrinsic allergic Idiosyncratic Intrinsic nonallergic Late-onset Mixed Other, please specify Unable to determine Please continue to document in your progress notes and discharge summary in order to capture severity of illness and risk of mortality. Include clinical findings that support your diagnosis. MTDD
--- NOTE | 2017-05-12 14:05 | P.DS ---
Providers Date of admission: 05/09/17 18:29 Expected date of discharge: 05/12/17 Attending physician: Adrian Benson Consults: 05/09/17 18:29 Consult Physician Routine Consulting Provider: Brian Sarmiento Consult Reason/Comments: known Do you want consulting provider notified?: Yes Primary care physician: Geo Mccabe [facility] Course: This is an 89-year-old female patient of Dr. 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 Patient states that she was disoriented yesterday and this may been going on for some time. She has had a cough for a while as well as sputum production a small amount. She denies any significant shortness of breath. She denies fever or chills and denies sick contacts. She does complain of back pain which is been chronic. She has been treated with Bactrim for urinary tract infection Her son and daughters came to the house and they were concerned and brought her into [facility] emergency center for evaluation. Fever 101.3, lactic acid 2.9 and repeat 1, white count of 5.6. Influenza testing was negative. Urinalysis was clear with nitrate and leukoesterase negative. Chest x-ray showed interstitial lung disease and emphysema and repeat chest x-ray shows COPD.patient was started on azithromycin , ceftriaxone, 1 dose of IV Solu-Medrol and DuoNeb treatments and admitted to the selective care unit. Blood culture and urine culture were obtained. Sputum cultures on collected. Consult was requested with pulmonary medicine. 05/11: Blood culture 2 showing no growth after 24 hours and urine culture is been finalized with no growth after 18 hours. Patient has been afebrile since admission. Pulse ox is 97% on room air. Patient had increased anxiety yesterday for which Solu-Medrol was decreased to 40 mg twice daily and Xanax was added. Patient states that she was very shaky and feels better today. Solu -Medrol will be switched over to prednisone. She states her cough is better. She still has phlegm production but not as much. Patient has been stable and will be transferred to the [facility] floor with probable discharge tomorrow. 05/12: Patient continues to have some cough for which she will be discharged on Tessalon Perles. Pulse ox is 98% on room air. Patient will be discharged home today in stable condition. Discharge diagnoses: 1. Acute exacerbation of bronchial asthma secondary to acute tracheobronchitis without pneumonia. 2. Hypertension. 3. Dementia with increased anxiety 4. Gastroesophageal reflux disease Discharge plan: Home Impression and plan of care have been directed as dictated by the signing physician. Carmen Sutton nurse practitioner acting as scribe for signing physician. Patient Condition at Discharge: Fair Plan - Discharge Summary Discharge Rx Participant: No New Discharge Prescriptions: New Azithromycin [Zithromax] 500 mg PO DAILY #5 tab Benzonatate [Tessalon Perles] 100 mg PO TID PRN #60 capsule PRN Reason: Cough Famotidine [Pepcid] 20 mg PO DAILY #30 tab predniSONE 0 mg PO DIRECTED #30 tab Continue Donepezil [Aricept] 10 mg PO HS Citalopram Hydrobromide [CeleXA] 10 mg PO DAILY Memantine [Namenda] 10 mg PO BID Olmesartan [Benicar] 20 mg PO DAILY Multivitamins, Thera [Multivitamin (formulary)] 1 tab PO DAILY L.acidoph,Paracasei, B.lactis [Probiotic] 1 cap PO DAILY Cranberry Fruit Concentrate [Azo Cranberry] 250 mg PO DAILY Montelukast [Singulair] 10 mg PO HS Cetirizine HCl [Zyrtec] 10 mg PO DAILY Albuterol Inhaler [Ventolin Hfa Inhaler] 2 puff INHALATION RT-Q4H PRN PRN Reason: Dyspnea Coconut Oil 1 tab PO DAILY Calcium Carbonate [Calcium] 600 mg PO DAILY Albuterol Nebulized [Ventolin Nebulized] 2.5 mg INHALATION RT-BID PRN PRN Reason: Shortness Of Breath Fluticasone/Salmeterol [Advair 250-50 Diskus] 1 puff INHALATION RT-BID Discontinued Sulfamethox-Tmp 800-160Mg [Bactrim DS 800-160 mg] 1 tab PO Q12HR Hydrocodone/Chlorphen P-Stirex [Tussionex] 5 ml PO Q12HR PRN PRN Reason: Cough Discharge Medication List Citalopram Hydrobromide [CeleXA] 10 mg PO DAILY 11/09/13 [History] Donepezil [Aricept] 10 mg PO HS 11/09/13 [History] Memantine [Namenda] 10 mg PO BID 11/09/13 [History] Olmesartan [Benicar] 20 mg PO DAILY 11/26/13 [History] Albuterol Inhaler [Ventolin Hfa Inhaler] 2 puff INHALATION RT-Q4H PRN 03/22/17 [ History] Albuterol Nebulized [Ventolin Nebulized] 2.5 mg INHALATION RT-BID PRN 03/22/17 [ History] Calcium Carbonate [Calcium] 600 mg PO DAILY 03/22/17 [History] Cetirizine HCl [Zyrtec] 10 mg PO DAILY 03/22/17 [History] Coconut Oil 1 tab PO DAILY 03/22/17 [History] Cranberry Fruit Concentrate [Azo Cranberry] 250 mg PO DAILY 03/22/17 [History] L.acidoph,Paracasei, B.lactis [Probiotic] 1 cap PO DAILY 03/22/17 [History] Montelukast [Singulair] 10 mg PO HS 03/22/17 [History] Multivitamins, Thera [Multivitamin (formulary)] 1 tab PO DAILY 03/22/17 [History ] Fluticasone/Salmeterol [Advair 250-50 Diskus] 1 puff INHALATION RT-BID 05/09/17 [History] Azithromycin [Zithromax] 500 mg PO DAILY #5 tab 05/12/17 [Rx] Benzonatate [Tessalon Perles] 100 mg PO TID PRN #60 capsule 05/12/17 [Rx] Famotidine [Pepcid] 20 mg PO DAILY #30 tab 05/12/17 [Rx] predniSONE 0 mg PO DIRECTED #30 tab 05/12/17 [Rx] Follow up Appointment(s)/Referral(s): Brian Sarmiento DO [Doctor of Osteopathic Medicine] - 05/22/17 2:00 pm Geo Mccabe MD [Primary Care Provider] - 05/19/17 2:45 pm Patient Instructions/Handouts: Benzonatate (By mouth), Famotidine (By mouth), Prednisone (By mouth), Azithromycin (By mouth), Chest Pain (DC), Fever in Adults (GEN), Emphysema (DC), Pneumonia (DC) Discharge Disposition: HOME SELF-CARE
--- NOTE | 2017-05-13 09:24 | PN ---
PROGRESS NOTE ADDENDUM: The progress note will actually state the following: The patient had acute exacerbation of mild intermittent asthma. There was no evidence of interstitial lung disease on the chest x-ray, which I reviewed myself. There was evidence of hyperinflation, and a chest x-ray for COPD and asthma will look hyperinflated basically the same. He cannot differentiate between asthma and COPD based on the chest x-ray itself alone. Again, the patient had acute exacerbation of mild intermittent asthma. She never had any smoking history. The patient did not have status asthmaticus, she had acute exacerbation of mild intermittent asthma and tracheobronchitis. MMODL / IJN: [id number] /
== END 2017-05-12 12:15 | disposition home or self-care (01) | DRG 202 ==
LOC: EC 16:40 → 6SEL 18:29 → 5MS5E 05-11 11:30
PROVIDERS: ADMIT Internal Medicine; ATTEND Internal Medicine
PROC: 3E0234Z Introduction of Serum, Toxoid and Vaccine into Muscle, Percutaneous Approach (ICD-10-PCS; principal; 2017-05-10)
DX: J45.21 Mild intermittent asthma with (acute) exacerbation (principal); J84.9 Interstitial pulmonary disease, unspecified; J43.9 Emphysema, unspecified; F03.90 Unspecified dementia, unspecified severity, without behavioral disturbance, psychotic disturbance, mood disturbance, and anxiety; J20.9 Acute bronchitis, unspecified; Z23 Encounter for immunization; I10 Essential (primary) hypertension; K21.9 Gastro-esophageal reflux disease without esophagitis; F32.9 Major depressive disorder, single episode, unspecified; F41.9 Anxiety disorder, unspecified; H02.401 Unspecified ptosis of right eyelid; M19.91 Primary osteoarthritis, unspecified site; M54.9 Dorsalgia, unspecified; Z79.51 Long term (current) use of inhaled steroids; Z79.899 Other long term (current) drug therapy; Z87.01 Personal history of pneumonia (recurrent); Z90.49 Acquired absence of other specified parts of digestive tract; Z98.42 Cataract extraction status, left eye; Z98.41 Cataract extraction status, right eye; Z96.1 Presence of intraocular lens; Z88.5 Allergy status to narcotic agent; Z88.8 Allergy status to other drugs, medicaments and biological substances; Z87.440 Personal history of urinary (tract) infections; Z82.5 Family history of asthma and other chronic lower respiratory diseases
CPT/HCPCS: 36415; 71046; 80048; 80053; 81003; 83036; 83605; 85025; 85027; 85610; 85730; 87040; 87086; 87502; 90732; 93005; 94640; 94760; 96361; 96365; 96375; 99285

== ENCOUNTER 2017-05-15 10:12 | Day surgery (SDC) | payer MEDICARE ==
[~2017-05-15 10:12] MED LIST: ALBUTEROL NEB (CONC) 2.5 MG/0.5 ML INHALATION ONE; ATROPINE SULFATE 0.4 MG/ML 1 ML VIAL IM ONE; LACTATED RINGERS 1,000 ML IV ONE; LACTATED RINGERS 1,000 ML IV SCH; LIDOCAINE 1% 20 ML VIAL (10MG/ML) FOR IV START INTRADERMA PRN; LIDOCAINE 2% (PF) 20 MG/ML 2 ML AMP INHALATION ONE
[2017-05-15 11:24] VITALS: RESP 16; TEMP 97.9
[2017-05-15] MEDS ORDERED: PROPOFOL 10 MG/ML 20 ML VIAL IV ONE (11:42)
[2017-05-15] MEDS ORDERED: GLYCOPYRROLATE 0.2 MG/ML 2 ML VIAL ONE (11:42)
[2017-05-15] MEDS ORDERED: LIDOCAINE 1% INJ 10MG/ML (20 ML MDV) ONE (11:42)
[2017-05-15] MEDS ORDERED: LIDOCAINE 2% INJ 20 MG/ML INTRATRACH ONE (11:54)
--- NOTE | 2017-05-15 12:26 | PCN ---
PROCEDURE NOTE PROCEDURE: Bronchoscopy, airway examination, therapeutic lavage, BAL right middle lobe. PREOPERATIVE DIAGNOSIS: Tracheobronchomalacia. POSTOPERATIVE DIAGNOSIS: Tracheobronchomalacia. OPERATORS: Dr. Sarmiento and Dr. Lozoya. PROCEDURE: There was informed consent. There was universal timeout. The patient's procedure was done in room #3 [facility]. After the patient was adequately sedated and being fully monitored, the bronchoscope was inserted through the right nostril. It passed through the right nasopharynx into the oropharynx. The hypopharynx was identified and topicalized. The hypopharyngeal structures including anterior commissure, true cords, false cords, arytenoids, piriform sinuses, right and left vallecula and epiglottis all appeared normal. After topicalization, bronchoscope was pushed through the glottic opening into the trachea. There was significant tracheomalacia noted. There was minimal secretions. There was no dominant mass. Tracheal bill was sharp. Right and left mainstem were topicalized. The right upper lobe and its 3 segments, right middle lobe and its 2 segments, right lower lobe and its 5 segments, left upper lobe proper and its 2 segments, lingula and its 2 segments and left lower lobe and its 4 segments all had similar findings of significant bronchomalacia. Her airways were very easily collapsible. There was no dominant mass or tumor. Secretions were thin, somewhat frothy. There was no bleeding. There was minimal bronchitis. The patient tolerated the procedure well. Next, the bronchoscope was wedged into the right middle lobe. BAL took place. The patient will be recovered. The bronchoscope was withdrawn. Fluid was sent for analysis. There was no immediate complication. MMODL / IJN: [id number] /
[2017-05-15 12:49] VITALS: BP 139/83; PULSE 90
[2017-05-15 15:10] LABS: Appearance,BF Hazy; Color,BF Colorless; Nucleated Cells, Body Fluid 75 /uL; RBC, Body Fluid 930 /uL
[2017-05-15 15:36] LABS: Mononuclear WBC,Body Fluid 98 %; Polynuclear WBC,Body Fluid 2 %; Total Cells Counted,Body Fluid 100
== END 2017-05-15 13:05 | disposition home or self-care (01) ==
LOC: ORWHC2ENDO 10:12
PROVIDERS: ATTEND Internal Medicine Critical Care Medicine
DX: J39.8 Other specified diseases of upper respiratory tract (principal); J98.09 Other diseases of bronchus, not elsewhere classified; R05 Cough; K21.9 Gastro-esophageal reflux disease without esophagitis; R32 Unspecified urinary incontinence; F03.90 Unspecified dementia, unspecified severity, without behavioral disturbance, psychotic disturbance, mood disturbance, and anxiety; J45.909 Unspecified asthma, uncomplicated; F32.9 Major depressive disorder, single episode, unspecified; I10 Essential (primary) hypertension; Z79.51 Long term (current) use of inhaled steroids; Z79.899 Other long term (current) drug therapy; Z88.6 Allergy status to analgesic agent; Z88.5 Allergy status to narcotic agent
CPT/HCPCS: 94640; 87798 ×3; 87496; 87498; 87529 ×2; 89050; 87252; 87502; 87634; 87070; 87205; 87116; 87102; 87206; 31624; J2001 ×3; J0461; J2704; 88108; 88305

== ENCOUNTER 2017-08-03 09:55 | Inpatient (IN) | payer MEDICARE ==
[2017-08-03] MEDS ORDERED: SODIUM CHLORIDE 0.9% 500 ML IV STA (10:15)
--- NOTE | 2017-08-03 10:24 | ED ---
General Adult HPI - General Chief complaint: Syncope Stated complaint: Syncope Time Seen by Provider: 08/03/17 10:07 Source: patient, family, EMS, RN notes reviewed Mode of arrival: EMS Limitations: altered mental status - History of Present Illness Initial comments: Patient is a pleasant 89-year-old female presenting to the emergency department following a reported syncopal episode. Patient is a poor historian and does not recall the episode. Family does arrive and helps provide history. Patient was in the hospital last week with pneumonia and was on steroids. Patient just finished steroids 3 days ago. Patient this morning had a reported syncopal episode while using the restroom. Patient was on the toilet and did not fall. Patient reportedly was nauseated following the event. She has no complaints at this time. Family feels the patient is acting normally at this time. - Related Data Home Medications Medication Instructions Recorded Confirmed Citalopram Hydrobromide [CeleXA] 20 mg PO HS 11/09/13 05/13/17 Donepezil [Aricept] 10 mg PO HS 11/09/13 05/13/17 Memantine [Namenda] 10 mg PO BID 11/09/13 05/15/17 Olmesartan [Benicar] 40 mg PO QAM 11/26/13 05/15/17 Albuterol Inhaler [Ventolin Hfa 2 puff INHALATION RT-Q4H PRN 03/22/17 05/13/17 Inhaler] Albuterol Nebulized [Ventolin 2.5 mg INHALATION RT-BID PRN 03/22/17 05/13/17 Nebulized] Cetirizine HCl [Zyrtec] 10 mg PO HS 03/22/17 05/13/17 Coconut Oil 1 tab PO DAILY 03/22/17 05/13/17 Cranberry Fruit Concentrate [Azo 250 mg PO DAILY 03/22/17 05/13/17 Cranberry] L.acidoph,Paracasei, B.lactis 1 cap PO DAILY 03/22/17 05/13/17 [Probiotic] Montelukast [Singulair] 10 mg PO HS 03/22/17 05/13/17 Multivitamins, Thera [Multivitamin 1 tab PO DAILY 03/22/17 05/13/17 (formulary)] Fluticasone/Salmeterol [Advair 1 puff INHALATION RT-BID 05/09/17 05/13/17 250-50 Diskus] Azithromycin [Zithromax] 500 mg PO QAM 05/13/17 05/15/17 Famotidine [Pepcid] 20 mg PO QAM 05/13/17 05/15/17 Previous Rx's Medication Instructions Recorded Benzonatate [Tessalon Perles] 100 mg PO TID PRN #60 capsule 05/12/17 predniSONE 0 mg PO DIRECTED #30 tab 05/12/17 Allergies Allergy/AdvReac Type Severity Reaction Status Date / Time morphine AdvReac Itching Verified 08/03/17 10:18 naproxen [From Aleve] AdvReac Itching Verified 08/03/17 10:18 Review of Systems ROS Statement: Those systems with pertinent positive or pertinent negative responses have been documented in the HPI. ROS Other: All systems not noted in ROS Statement are negative. Constitutional: Denies: fever Eyes: Denies: eye pain ENT: Denies: ear pain Respiratory: Denies: cough Cardiovascular: Denies: chest pain Endocrine: Denies: fatigue Gastrointestinal: Reports: nausea Genitourinary: Denies: dysuria Musculoskeletal: Denies: back pain Skin: Denies: rash Neurological: Denies: weakness Past Medical History Past Medical History: Asthma, Dementia, GERD/Reflux, Hypertension, Pneumonia Additional Past Medical History / Comment(s): left knee pain, back fx, retinal detachment on the right, ptosis right eye History of Any Multi-Drug Resistant Organisms: None Reported Past Surgical History: Appendectomy, Cholecystectomy Additional Past Surgical History / Comment(s): Bilateral cataract removal and intraocular lens implants Past Anesthesia/Blood Transfusion Reactions: No Reported Reaction Past Psychological History: Depression Smoking Status: Never smoker Past Alcohol Use History: None Reported Past Drug Use History: None Reported - Past Family History Mother Additional Family Medical History / Comment(s): Mother at age 86 from a myocardial infarction and CVA with history of hypertension. Father Additional Family Medical History / Comment(s): Father at age 50 from a myocardial infarction. Brother(s) Additional Family Medical History / Comment(s): One brother from acute myocardial infarction and also had liver transplant and kidney transplant. A second brother had carcinoma of the prostate. A third brother had colon cancer at age 71. Sister(s) Additional Family Medical History / Comment(s): Patient has one sister with COPD and lung cancer. Daughter(s) Additional Family Medical History / Comment(s): Patient has 6 daughters and one has history of lung cancer at age 46, second daughter has history of hypothyroidism. Son has history of diverticular disease. General Exam Limitations: altered mental status General appearance: alert, in no apparent distress Head exam: Present: atraumatic Eye exam: Present: normal appearance, PERRL, other (Right eyelid is slightly droopy which family states is chronic and unchanged) ENT exam: Present: normal oropharynx Neck exam: Present: normal inspection. Absent: tenderness, meningismus Respiratory exam: Present: normal lung sounds bilaterally Cardiovascular Exam: Present: regular rate, normal rhythm Expanded Peripheral pulses: 2+: Radial (R), Radial (L), Dorsalis Pedis (R), Dorsalis Pedis (L) GI/Abdominal exam: Present: soft. Absent: tenderness, pulsatile mass Extremities exam: Present: normal inspection. Absent: pedal edema, calf tenderness Neurological exam: Present: alert, CN II-XII intact. Absent: motor sensory deficit Expanded Patient oriented to: Present: person, place. Absent: time Speech: Present: fluid speech Cranial nerves: EOM's Intact: Normal, Facial Sensation: Normal Sensory exam: Upper Extremity Light Touch: Normal, Lower Extremity Light Touch: Normal Motor strength exam: RUE: 5, LUE: 5, RLE: 5, LLE: 5 Psychiatric exam: Present: normal affect, normal mood Skin exam: Present: normal color Course Vital Signs 08/03/17 08/03/17 10:05 11:42 Temperature 97.4 F L Pulse Rate 78 Respiratory 16 16 Rate Blood Pressure 87/50 107/56 O2 Sat by Pulse 95 98 Oximetry EKG Findings - EKG Comments: EKG Findings:: Sinus rhythm at 77. For screening AV block with DC of 262. QRS 118. QT 400. QTc 452. No axis. Incomplete right bundle-branch block. No acute ST change. Medical Decision Making - Medical Decision Making Patient reevaluated and resting comfortably in bed. Patient and family updated on results and plan. Case was discussed in detail with Dr. Espinal, who will admit for Dr. Mccabe. - Lab Data Result diagrams: 08/03/17 10:06 08/03/17 10:06 Lab Results 08/03/17 08/03/17 08/03/17 Range/Units 10:06 10:06 10:06 WBC 7.1 (3.8-10.6) k/uL RBC 3.99 (3.80-5.40) m/uL Hgb 11.6 (11.4-16.0) gm/dL Hct 35.0 (34.0-46.0) % MCV 87.7 (80.0-100.0) fL MCH 29.1 (25.0-35.0) pg MCHC 33.2 (31.0-37.0) g/dL RDW 14.2 (11.5-15.5) % Plt Count 257 (150-450) k/uL Neutrophils % 69 % Lymphocytes % 24 % Monocytes % 5 % Eosinophils % 1 % Basophils % 0 % Neutrophils # 4.9 (1.3-7.7) k/uL Lymphocytes # 1.7 (1.0-4.8) k/uL Monocytes # 0.4 (0-1.0) k/uL Eosinophils # 0.0 (0-0.7) k/uL Basophils # 0.0 (0-0.2) k/uL PT (9.0-12.0) sec INR (<1.2) APTT (22.0-30.0) sec Sodium 134 L (137-145) mmol/L Potassium 4.6 (3.5-5.1) mmol/L Chloride 99 (98-107) mmol/L Carbon Dioxide 25 (22-30) mmol/L Anion Gap 10 mmol/L BUN 19 H (7-17) mg/dL Creatinine 0.90 (0.52-1.04) mg/dL Est GFR (CKD-EPI)AfAm 66 (>60 ml/min/1.73 sqM) Est GFR (CKD-EPI)NonAf 57 (>60 ml/min/1.73 sqM) Glucose 117 H (74-99) mg/dL Calcium 8.8 (8.4-10.2) mg/dL Magnesium 1.7 (1.6-2.3) mg/dL Total Bilirubin 0.6 (0.2-1.3) mg/dL AST 26 (14-36) U/L ALT 40 (9-52) U/L Alkaline Phosphatase 81 (38-126) U/L Total Creatine Kinase <20 L (30-135) U/L CK-MB (CK-2) 0.7 (0.0-2.4) ng/mL CK-MB (CK-2) Rel Index Troponin I <0.012 (0.000-0.034) ng/mL Total Protein 5.5 L (6.3-8.2) g/dL Albumin 3.0 L (3.5-5.0) g/dL Cortisol 21 ug/dL Urine Color Urine Appearance (Clear) Urine pH (5.0-8.0) Ur Specific [place] (1.001-1.035) Urine Protein (Negative) Urine Glucose (UA) (Negative) Urine Ketones (Negative) Urine Blood (Negative) Urine Nitrite (Negative) Urine Bilirubin (Negative) Urine Urobilinogen (<2.0) mg/dL Ur Leukocyte Esterase (Negative) Urine RBC (0-5) /hpf Amorphous Sediment (None) /hpf Urine Mucus (None) /hpf 08/03/17 08/03/17 Range/Units 10:06 11:35 WBC (3.8-10.6) k/uL RBC (3.80-5.40) m/uL Hgb (11.4-16.0) gm/dL Hct (34.0-46.0) % MCV (80.0-100.0) fL MCH (25.0-35.0) pg MCHC (31.0-37.0) g/dL RDW (11.5-15.5) % Plt Count (150-450) k/uL Neutrophils % % Lymphocytes % % Monocytes % % Eosinophils % % Basophils % % Neutrophils # (1.3-7.7) k/uL Lymphocytes # (1.0-4.8) k/uL Monocytes # (0-1.0) k/uL Eosinophils # (0-0.7) k/uL Basophils # (0-0.2) k/uL PT 9.9 (9.0-12.0) sec INR 1.0 (<1.2) APTT 19.9 L (22.0-30.0) sec Sodium (137-145) mmol/L Potassium (3.5-5.1) mmol/L Chloride (98-107) mmol/L Carbon Dioxide (22-30) mmol/L Anion Gap mmol/L BUN (7-17) mg/dL Creatinine (0.52-1.04) mg/dL Est GFR (CKD-EPI)AfAm (>60 ml/min/1.73 sqM) Est GFR (CKD-EPI)NonAf (>60 ml/min/1.73 sqM) Glucose (74-99) mg/dL Calcium (8.4-10.2) mg/dL Magnesium (1.6-2.3) mg/dL Total Bilirubin (0.2-1.3) mg/dL AST (14-36) U/L ALT (9-52) U/L Alkaline Phosphatase (38-126) U/L Total Creatine Kinase (30-135) U/L CK-MB (CK-2) (0.0-2.4) ng/mL CK-MB (CK-2) Rel Index Troponin I (0.000-0.034) ng/mL Total Protein (6.3-8.2) g/dL Albumin (3.5-5.0) g/dL Cortisol ug/dL Urine Color Yellow Urine Appearance Cloudy H (Clear) Urine pH 7.5 (5.0-8.0) Ur Specific [place] 1.013 (1.001-1.035) Urine Protein Negative (Negative) Urine Glucose (UA) Negative (Negative) Urine Ketones Negative (Negative) Urine Blood Negative (Negative) Urine Nitrite Negative (Negative) Urine Bilirubin Negative (Negative) Urine Urobilinogen <2.0 (<2.0) mg/dL Ur Leukocyte Esterase Negative (Negative) Urine RBC 1 (0-5) /hpf Amorphous Sediment Rare H (None) /hpf Urine Mucus Rare H (None) /hpf - Radiology Data Radiology results: report reviewed (Computed tomography scan of the brain shows no acute intercranial abnormality. Mild degenerative changes.), image reviewed (Chest x-ray shows no acute process. Correlate for COPD.) Disposition Clinical Impression: Syncope Disposition: ADMITTED IP TO THIS [facility] Referrals: Geo Mccabe MD [Primary Care Provider] - 1-2 days Decision Time: 12:48
[2017-08-03] MEDS: SODIUM CHLORIDE 0.9% 1,000 ML IV STA ×2 (10:26→16:45)
[2017-08-03 10:34] LABS: Basophils % (A) 0 %; Eosinophils % (A) 1 %; HGB 11.6 gm/dL (11.4-16.0); Lymphocytes # (A) 1.7 k/uL (1.0-4.8); Lymphocytes % (A) 24 %; MCH 29.1 pg (25.0-35.0); MCHC 33.2 g/dL (31.0-37.0); MCV 87.7 fL (80.0-100.0); Mean Platelet Volume 6.2; Monocytes # (A) 0.4 k/uL (0-1.0); Monocytes % (A) 5 %; Neutrophils # (A) 4.9 k/uL (1.3-7.7); Neutrophils % (A) 69 %; Platelet Count 257 k/uL (150-450); RBC 3.99 m/uL (3.80-5.40); RDW 14.2 % (11.5-15.5); WBC 7.1 k/uL (3.8-10.6)
[2017-08-03 10:43] LABS: Calcium 8.8 mg/dL (8.4-10.2); Magnesium 1.7 mg/dL (1.6-2.3); Potassium 4.6 mmol/L (3.5-5.1); Total Bilirubin 0.6 mg/dL (0.2-1.3); Total Protein 5.5 g/dL (6.3-8.2)
[2017-08-03 10:50] LABS: Prothrombin Time 9.9 sec (9.0-12.0)
--- NOTE | 2017-08-03 10:50 | CT ---
EXAMINATION TYPE: CT brain wo con DATE OF EXAM: 08/03/2017 COMPARISON: Previous study dated 03/22/2017 HISTORY: Weakness CT DLP: 1121 mGycm Automated exposure control for dose reduction was used. FINDINGS: There are generalized changes of sulcal prominence and ventriculomegaly, compatible with atrophic harley nge. There is diffuse periventricular white matter lucency, compatible with chronic white matter isch emic change. There is no acute focal lesion, mass effect or midline shift identified. I do not see ev idence of intracranial blood. Visualized portions of the paranasal sinuses and mastoids are clear. The bony calvarium is intact. IMPRESSION: 1. NO ACUTE INTRACRANIAL ABNORMALITY. 2. MILD DEGENERATIVE CHANGE.
[2017-08-03 10:51] LABS: Partial Thromboplastin Time 19.9 sec (22.0-30.0)
[2017-08-03 10:53] LABS: Creatine Kinase <20 U/L (30-135)
--- NOTE | 2017-08-03 11:00 | XR ---
EXAMINATION TYPE: XR chest 2V DATE OF EXAM: 08/03/2017 HISTORY: syncope. REFERENCE: Previous study dated 05/10/2017. FINDINGS: Lung volumes are prominent. Heart is not enlarged. The lungs are clear. Pleural spaces are clear. IMPRESSION: PLEASE CORRELATE CLINICALLY FOR COPD.
[2017-08-03 11:06] LABS: Creatine Kinase MB 0.7 ng/mL (0.0-2.4); Troponin I <0.012 ng/mL (0.000-0.034)
[2017-08-03 11:54] LABS: Amorphous Sediment,Urine Rare /hpf; Appearance,Urine Cloudy (Clear); Bilirubin,Urine Negative (Negative); Blood,Urine Negative (Negative); Color,Urine Yellow; Glucose,Urine (UA) Negative (Negative); Ketones,Urine Negative (Negative); Leukocyte Esterase,Urine Negative (Negative); Mucus,Urine Rare /hpf; Nitrite,Urine Negative (Negative); PH, Urine 7.5 (5.0-8.0); Protein,Urine Negative (Negative); RBC,Urine 1 /hpf (0-5); Specific Gravity,Urine 1.013 (1.001-1.035); Urobilinogen,Urine <2.0 mg/dL (<2.0)
[2017-08-03] MEDS ORDERED: NALOXONE 0.4 MG/ML 1 ML VIAL IV PRN (12:48)
[2017-08-03] MEDS ORDERED: SODIUM CHLORIDE 0.9% 1,000 ML IV SCH (13:00)
[2017-08-03 13:23] VITALS: RESP 18
[2017-08-03] MEDS ORDERED: ALBUTEROL NEBULIZED 2.5 MG/3 ML INHALATION PRN (15:40)
[2017-08-03] MEDS ORDERED: SODIUM CHLORIDE 0.9% 1,000 ML IV ONE (16:17)
[2017-08-03] MEDS: BENZONATATE 100 MG CAP PO SCH ×2 (17:56→21:14)
[2017-08-03] MEDS: SYMBICORT 80-4.5 MCG INHALER INHALATION SCH (19:02)
[2017-08-03 19:07] LABS: Creatine Kinase <20 U/L (30-135)
[2017-08-03 19:17] LABS: Creatine Kinase MB 0.7 ng/mL (0.0-2.4); Troponin I <0.012 ng/mL (0.000-0.034)
[2017-08-03] MEDS: CALCIUM CARB-VIT D 500MG-200UN 1 EACH TAB PO SCH (21:13)
[2017-08-03] MEDS: MONTELUKAST 10 MG TAB PO SCH (21:14)
[2017-08-03] MEDS: LORATADINE 10 MG TAB PO SCH (21:14)
[2017-08-03] MEDS: CITALOPRAM HYDROBROMIDE 20 MG TAB PO SCH (21:14)
[2017-08-03] MEDS: MEMANTINE 10 MG TAB PO SCH (21:14)
[2017-08-03] MEDS: MELATONIN 3 MG TABLET PO SCH (21:14)
[2017-08-03] MEDS: DONEPEZIL 10 MG TAB PO SCH (21:14)
[2017-08-03 22:39] LABS: Creatine Kinase <20 U/L (30-135)
[2017-08-03 22:50] LABS: Creatine Kinase MB 0.9 ng/mL (0.0-2.4); Troponin I 0.016 ng/mL (0.000-0.034)
[2017-08-04] MEDS: SYMBICORT 80-4.5 MCG INHALER INHALATION SCH ×2 (07:49→19:40)
[2017-08-04] MEDS: PSYLLIUM HUSK 100% 6 GM PACKET PO SCH (08:16)
[2017-08-04] MEDS: FAMOTIDINE 20 MG TAB PO SCH (08:17)
[2017-08-04] MEDS: MEMANTINE 10 MG TAB PO SCH ×2 (08:17→20:27)
[2017-08-04] MEDS: MULTIVITAMINS, THERA 1 EACH TAB PO SCH (08:17)
[2017-08-04] MEDS: BENZONATATE 100 MG CAP PO SCH ×3 (08:17→20:27)
--- NOTE | 2017-08-04 08:30 | P.CRDCN ---
History of Present Illness Consult date: 08/04/17 Chief complaint: Syncope History of present illness: This is a pleasant 89-year-old female patient with a past medical history significant for hypertension as well as mild underlying dementia who resides in an extended care facility was brought to the hospital after she lost her consciousness there. The patient was in her usual state of health until yesterday when she was in the bathroom and she did have a witnessed syncopal episode. No symptoms of chest pain or discomfort around episodes, no dizziness or lightheadedness, and no feeling of heart racing or fluttering. When the patient presented to the hospital she was found to be slightly dehydrated and hypotensive and she received some IV fluid and we did an orthostatic blood pressure on her this morning and that came in to be unremarkable. Please note that the patient does have history of hypertension and she was receiving only started on 40 mg by mouth daily. Currently this is on hold. The EKG showed sinus rhythm without any significant ST or T-wave abnormalities. The cardiac enzymes were checked and came in to be unremarkable. The patient is not aware of any prior history of coronary artery disease or congestive heart failure or any cardiac arrhythmia. She does not follow with any computer education professor on a regular basis. She underwent an echocardiogram in 2015 and that revealed normal LV function. Past Medical History Past Medical History: Asthma, Dementia, GERD/Reflux, Hypertension, Pneumonia Additional Past Medical History / Comment(s): left knee pain, back fx, retinal detachment on the right, ptosis right eye History of Any Multi-Drug Resistant Organisms: None Reported Past Surgical History: Appendectomy, Cholecystectomy Additional Past Surgical History / Comment(s): Bilateral cataract removal and intraocular lens implants Past Anesthesia/Blood Transfusion Reactions: No Reported Reaction Past Psychological History: Depression Smoking Status: Never smoker Past Alcohol Use History: None Reported Additional Past Alcohol Use History / Comment(s): She is a lifelong nonsmoker and denies secondhand smoke exposure. She lives in an [facility] home, according to family. No street drug or alcohol use. Past Drug Use History: None Reported - Past Family History Mother Additional Family Medical History / Comment(s): Mother at age 86 from a myocardial infarction and CVA with history of hypertension. Father Additional Family Medical History / Comment(s): Father at age 50 from a myocardial infarction. Brother(s) Additional Family Medical History / Comment(s): One brother from acute myocardial infarction and also had liver transplant and kidney transplant. A second brother had carcinoma of the prostate. A third brother had colon cancer at age 71. Sister(s) Additional Family Medical History / Comment(s): Patient has one sister with COPD and lung cancer. Daughter(s) Additional Family Medical History / Comment(s): Patient has 6 daughters and one has history of lung cancer at age 46, second daughter has history of hypothyroidism. Son has history of diverticular disease. Medications and Allergies Home Medications Medication Instructions Recorded Confirmed Type Citalopram Hydrobromide [CeleXA] 20 mg PO HS 11/09/13 08/03/17 History Donepezil [Aricept] 10 mg PO HS 11/09/13 08/03/17 History Memantine [Namenda] 10 mg PO BID 11/09/13 08/03/17 History Albuterol Inhaler [Ventolin Hfa 2 puff INHALATION RT-QID PRN 03/22/17 08/03/17 History Inhaler] Albuterol Nebulized [Ventolin 2.5 mg INHALATION RT-QID PRN 03/22/17 08/03/17 History Nebulized] Cetirizine HCl [Zyrtec] 10 mg PO HS 03/22/17 08/03/17 History Coconut Oil 2 tab PO DAILY 03/22/17 08/03/17 History Montelukast [Singulair] 10 mg PO HS 03/22/17 08/03/17 History Multivitamins, Thera [Multivitamin 1 tab PO DAILY 03/22/17 08/03/17 History (formulary)] Fluticasone/Salmeterol [Advair 1 puff INHALATION RT-BID 05/09/17 08/03/17 History 250-50 Diskus] Famotidine [Pepcid] 20 mg PO QAM 05/13/17 08/03/17 History Benzonatate [Tessalon Perles] 100 mg PO TID 08/03/17 08/03/17 History Calcium Citrate/Vitamin D3 1 tab PO HS 08/03/17 08/03/17 History [Calcitrate + Vit D Caplet] Cranberry Fruit Extract [Cranberry] 1,000 mg PO DAILY 08/03/17 08/03/17 History Hemorrhodial Cream 1 applic RECTAL BID 08/03/17 08/03/17 History Hemorrhoidal Supp 1 suppositor RECTAL QID PRN 08/03/17 08/03/17 History Hydrocodone/Chlorphen P-Stirex 5 ml PO HS PRN 08/03/17 08/03/17 History [Tussionex] Ibuprofen [Motrin Ib] 400 mg PO Q6H PRN 08/03/17 08/03/17 History Methylcellulose (with Sugar) 8 gm PO DAILY 08/03/17 08/03/17 History [Citrucel Powder] Olmesartan Medoxomil [Benicar] 40 mg PO DAILY 08/03/17 08/03/17 History Allergies Allergy/AdvReac Type Severity Reaction Status Date / Time morphine AdvReac Itching Verified 08/03/17 13:00 naproxen [From Aleve] AdvReac Itching Verified 08/03/17 13:00 Physical Exam Vitals: Vital Signs Temp Pulse Pulse Resp BP BP BP 08/04/17 04:10 83 135/64 08/04/17 04:05 79 130/62 08/04/17 04:00 98.6 F 83 18 08/04/17 00:00 99.0 F 80 18 08/03/17 20:00 99.0 F 80 18 08/03/17 16:00 100.3 F H 87 18 08/03/17 13:45 99.1 F 82 18 08/03/17 13:22 97.7 F 81 18 117/58 08/03/17 11:42 16 107/56 08/03/17 10:05 97.4 F L 78 16 87/50 BP BP Pulse Ox 08/04/17 04:10 08/04/17 04:05 08/04/17 04:00 138/61 97 08/04/17 00:00 118/59 98 08/03/17 20:00 115/55 95 08/03/17 16:00 80/46 93 L 08/03/17 13:45 88/52 95 08/03/17 13:22 95 08/03/17 11:42 98 08/03/17 10:05 95 Intake and Output 08/03/17 08/04/17 08/04/17 22:59 06:59 14:59 Intake Total 1999 Balance 1999 Intake: Intake, IV Titration 2000 Amount Sodium Chloride 0.9% 1, 1000 000 ml @ 75 mls/hr IV . [id number] [facility] Rx#:[id number] Sodium Chloride 0.9% 1, 1000 000 ml @ 999 mls/hr IV . Q1H1M ONE Rx#:[id number] Other: Voiding Method Toilet Toilet # Voids 1 # Bowel Movements 0 Weight 69.7 kg - Constitutional General appearance: no acute distress - Respiratory Respiratory: bilateral: CTA - Cardiovascular Rhythm: regular Heart sounds: normal: S1, S2 Results 08/03/17 10:06 08/03/17 10:06 Cardiac Enzymes 08/03/17 08/03/17 08/03/17 Range/Units 10:06 10:06 18:17 AST 26 (14-36) U/L CK-MB (CK-2) 0.7 0.7 (0.0-2.4) ng/mL Troponin I <0.012 <0.012 (0.000-0.034) ng/mL 08/03/17 Range/Units 21:32 AST (14-36) U/L CK-MB (CK-2) 0.9 (0.0-2.4) ng/mL Troponin I 0.016 (0.000-0.034) ng/mL Coagulation 08/03/17 Range/Units 10:06 PT 9.9 (9.0-12.0) sec APTT 19.9 L (22.0-30.0) sec CBC 08/03/17 Range/Units 10:06 WBC 7.1 (3.8-10.6) k/uL RBC 3.99 (3.80-5.40) m/uL Hgb 11.6 (11.4-16.0) gm/dL Hct 35.0 (34.0-46.0) % Plt Count 257 (150-450) k/uL Comprehensive Metabolic Panel 08/03/17 Range/Units 10:06 Sodium 134 L (137-145) mmol/L Potassium 4.6 (3.5-5.1) mmol/L Chloride 99 (98-107) mmol/L Carbon Dioxide 25 (22-30) mmol/L BUN 19 H (7-17) mg/dL Creatinine 0.90 (0.52-1.04) mg/dL Glucose 117 H (74-99) mg/dL Calcium 8.8 (8.4-10.2) mg/dL AST 26 (14-36) U/L ALT 40 (9-52) U/L Alkaline Phosphatase 81 (38-126) U/L Total Protein 5.5 L (6.3-8.2) g/dL Albumin 3.0 L (3.5-5.0) g/dL Current Medications Generic Name Dose Route Start Last Admin Trade Name Freq PRN Reason Stop Dose Admin Albuterol Sulfate 2.5 mg 08/03/17 15:40 Ventolin Nebulized INHALATION RT-QID PRN Shortness Of Breath Benzonatate 100 mg 08/03/17 16:00 08/04/17 08:17 Tessalon Perles PO 100 mg TID ALBERTINA Administration Budesonide/Formoterol Fumarate 2 puff 08/03/17 20:00 08/04/17 07:49 Symbicort 80-4.5 Mcg Inhaler INHALATION 2 puff RT-BID ALBERTINA Administration Calcium Carbonate 1 each 08/03/17 21:00 08/03/17 21:13 Oscal 500+D PO 1 each HS ALBERTINA Administration Citalopram Hydrobromide 20 mg 08/03/17 21:00 08/03/17 21:14 Celexa PO 20 mg HS ALBERTINA Administration Donepezil HCl 10 mg 08/03/17 21:00 08/03/17 21:14 Aricept PO 10 mg HS ALBERTINA Administration Famotidine 20 mg 08/04/17 09:00 08/04/17 08:17 Pepcid PO 20 mg QAM ALBERTINA Administration Loratadine 10 mg 08/03/17 21:00 08/03/17 21:14 Claritin PO 10 mg HS ALBERTINA Administration Melatonin 6 mg 08/03/17 21:00 08/03/17 21:14 Melatonin PO 6 mg HS ALBERTINA Administration Memantine 10 mg 08/03/17 21:00 08/04/17 08:17 Namenda PO 10 mg BID ALBERITNA Administration Montelukast Sodium 10 mg 08/03/17 21:00 08/03/17 21:14 Singulair PO 10 mg HS ALBERTINA Administration Multivitamins 1 each 08/04/17 12:00 08/04/17 08:17 Theragran PO 1 each 1200 ALBERTINA Administration Naloxone HCl 0.2 mg 08/03/17 12:48 Narcan IV Q2M PRN Opioid Reversal Psyllium Hydrophilic Mucilloid 6 gm 08/04/17 09:00 08/04/17 08:16 Metamucil PO 6 gm DAILY ALBERTINA Administration Intake and Output 08/03/17 08/04/17 08/04/17 22:59 06:59 14:59 Intake Total 1999 Balance 1999 Intake: Intake, IV Titration 2000 Amount Sodium Chloride 0.9% 1, 1000 000 ml @ 75 mls/hr IV . [id number] [facility] Rx#:[id number] Sodium Chloride 0.9% 1, 1000 000 ml @ 999 mls/hr IV . Q1H1M [facility] Rx#:[id number] Other: Voiding Method Toilet Toilet # Voids 1 # Bowel Movements 0 Weight 69.7 kg 08/03/17 10:06 08/03/17 10:06 Assessment and Plan Assessment: Assessment #1 syncopal episode likely to be orthostatic hypotension versus vasovagal syncope #2 systemic hypertension #3 mild underlying dementia Plan #1 I would agree on continue holding the only start that at this point and continue watch the blood pressure #2 obtain an echocardiogram was Doppler #3 watch for any arrhythmia #4 follow-up with the patient. Thank you for allowing us participate in her care and we'll continue following up with the patient
[2017-08-04 10:43] VITALS: BMI 32.1
--- NOTE | 2017-08-04 11:08 | ECHOF ---
Referral Reason:syncope MEASUREMENTS -------- HEIGHT: 127.0 cm WEIGHT: 69.4 kg BP: 135/64 IVSd: 1.0 cm (0.6 - 1.1) LVIDd: 3.1 cm (3.9 - 5.3) LVPWd: 1.2 cm (0.6 - 1.1) IVSs: 1.3 cm LVIDs: 2.5 cm LVPWs: 1.4 cm LA Diam: 3.9 cm (2.7 - 3.8) RVIDd: 3.7 cm (< 3.3) LAESV Index (A-L): 28.56 ml/m Ao Diam: 3.1 cm (2.0 - 3.7) LA Diam: 4.4 cm (2.7 - 3.8) AV Cusp: 2.0 cm (1.5 - 2.6) EPSS: 0.3 cm MV E Kai: 0.27 m/s MV DecT: 229 ms MV A Kai: 1.16 m/s MV E/A Ratio: 0.23 RAP: 5.00 mmHg RVSP: 26.15 mmHg MV EF SLOPE: 76.50 mm/s (70 - 150) MV EXCURSION: 15.97 mm (> 18.000) FINDINGS -------- Sinus rhythm. This was a technically adequate study. The left ventricular size is normal. There is mild concentric left ventricular hypertrophy. Overa ll left ventricular systolic function is normal with, an EF between 55 - 60 %. The right ventricle is mildly enlarged. The left atrial size is normal. The right atrial size is normal. There is mild aortic valve sclerosis. There is mild aortic regurgitation. Mild mitral annular calcification present. Mild mitral regurgitation is present. Mild tricuspid regurgitation present. There is no evidence of pulmonary hypertension. The right v entricular systolic pressure, as measured by Doppler, is 26.15mmHg. There is no pulmonic regurgitation present. The aortic root size is normal. There is no pericardial effusion. CONCLUSIONS -------- 1. The left ventricular size is normal. 2. There is mild concentric left ventricular hypertrophy. 3. Overall left ventricular systolic function is normal with, an EF between 55 - 60 %. 4. The right ventricle is mildly enlarged. 5. There is mild aortic valve sclerosis. 6. There is mild aortic regurgitation. 7. Mild mitral annular calcification present. 8. Mild mitral regurgitation is present. 9. Mild tricuspid regurgitation present. 10. There is no evidence of pulmonary hypertension. 11. The right ventricular systolic pressure, as measured by Doppler, is 26.15mmHg. 12. There is no pulmonic regurgitation present. 13. The aortic root size is normal. 14. There is no pericardial effusion. SAFETY OFFICER: Jesenia Solis RDCS
--- NOTE | 2017-08-04 13:55 | P.HPIM ---
History of Present Illness H&P Date: 08/04/17 Chief Complaint: SYNCOPE Patient seen this morning at 9 AM Patient lives at a group home facility postop she is a 89 years old female patient of Dr. Mccabe with past medical history of hypertension, mild dementia, asthma, hypertension was recently treated with pneumonia and was discharged on steroids. Patient completed her steroids one week ago. Family noticed increased anxiety attacks associated with decrease intake of fluid as well as solid food since her discharge last week. Family provides most of the history. According to the family issues and had an episode of nausea associated with vomiting followed by a passing out. Blood pressure on admission was 88/52 which improved with IV fluids. Blood pressure this morning was 95/51. Orthostatics obtained were negative. Patient continued to receive 75 mL/h of IV fluids overnight. Echo obtained. Cardiology evaluated the patient and rule out cardiogenic syncope. Telemetry negative for any arrhythmias overnight. Patient denies any chest pain, palpitations, motor or sensory deficits, any history of seizures. Family documents some movement of her extremities and passing out. Patient was confused and unable to hold herself when she woke up. Family states patient is currently not at her baseline. EEG ordered. Continue seizure precautions. Neurology consult to rule out possible seizures. Review of Systems Constitutional: Denies chills, Denies fever, Denies lethargy, Denies malaise, endorses poor appetite, endorses weakness, Denies weight loss Eyes: denies decreased vision, denies diplopia, denies discharge, denies pain Ears: deny: decreased hearing Ears, nose, mouth and throat: Denies dental pain, Denies headache, Denies nasal discharge, Denies nose pain Cardiovascular: Denies chest pain, Denies decreased exercise tolerance, Denies edema, Denies high blood pressure, Denies irregular heart beat, Denies palpitations, Denies paroxysmal nocturnal dyspnea, Denies rapid heart beat, Denies shortness of breath Respiratory: Denies congestion, Denies cough, Denies cough with sputum, Denies dyspnea, Denies home oxygen, Denies wheezing Gastrointestinal: Denies abdominal pain, Denies change in bowel habits, Denies coffee ground emesis, Denies early satiety, Denies excessive gas, Denies heartburn, Denies hematemesis, Denies hematochezia, Denies loss of appetite, Denies nausea, Denies vomiting Genitourinary: Denies dysuria, Denies flank pain, Denies kidney stones, Denies menorrhagia, Denies urgency, Denies urinary frequency Musculoskeletal: Denies gait dysfunction, Denies limitation of motion, Denies morning stiffness, Denies muscle cramps Integumentary: Denies rash, Denies wounds, Denies brittle nails, Denies change in hair/nails, Denies darkening of skin Neurological: Denies balance difficulties, Denies change in speech, Denies double vision, Denies gait dysfunction, Denies loss of vision, Denies motor disturbance, Denies numbness, Denies paralysis, Denies paresthesias, Denies seizures Psychiatric: Denies anxiety, Denies depression Endocrine: Denies excessive sweating, Denies excessive thirst, Denies high blood sugars, Denies palpitations Hematologic/Lymphatic: Denies easy bruising, Denies lymphadenopathy Past Medical History Past Medical History: Asthma, Dementia, GERD/Reflux, Hypertension, Pneumonia Additional Past Medical History / Comment(s): left knee pain, back fx, retinal detachment on the right, ptosis right eye History of Any Multi-Drug Resistant Organisms: None Reported Past Surgical History: Appendectomy, Cholecystectomy Additional Past Surgical History / Comment(s): Bilateral cataract removal and intraocular lens implants Past Anesthesia/Blood Transfusion Reactions: No Reported Reaction Past Psychological History: Depression Smoking Status: Never smoker Past Alcohol Use History: None Reported Additional Past Alcohol Use History / Comment(s): She is a lifelong nonsmoker and denies secondhand smoke exposure. She lives in an [facility] home, according to family. No street drug or alcohol use. Past Drug Use History: None Reported - Past Family History Mother Additional Family Medical History / Comment(s): Mother at age 86 from a myocardial infarction and CVA with history of hypertension. Father Additional Family Medical History / Comment(s): Father at age 50 from a myocardial infarction. Brother(s) Additional Family Medical History / Comment(s): One brother from acute myocardial infarction and also had liver transplant and kidney transplant. A second brother had carcinoma of the prostate. A third brother had colon cancer at age 71. Sister(s) Additional Family Medical History / Comment(s): Patient has one sister with COPD and lung cancer. Daughter(s) Additional Family Medical History / Comment(s): Patient has 6 daughters and one has history of lung cancer at age 46, second daughter has history of hypothyroidism. Son has history of diverticular disease. Medications and Allergies Home Medications Medication Instructions Recorded Confirmed Type Citalopram Hydrobromide [CeleXA] 20 mg PO HS 11/09/13 08/03/17 History Donepezil [Aricept] 10 mg PO HS 11/09/13 08/03/17 History Memantine [Namenda] 10 mg PO BID 11/09/13 08/03/17 History Albuterol Inhaler [Ventolin Hfa 2 puff INHALATION RT-QID PRN 03/22/17 08/03/17 History Inhaler] Albuterol Nebulized [Ventolin 2.5 mg INHALATION RT-QID PRN 03/22/17 08/03/17 History Nebulized] Cetirizine HCl [Zyrtec] 10 mg PO HS 03/22/17 08/03/17 History Coconut Oil 2 tab PO DAILY 03/22/17 08/03/17 History Montelukast [Singulair] 10 mg PO HS 03/22/17 08/03/17 History Multivitamins, Thera [Multivitamin 1 tab PO DAILY 03/22/17 08/03/17 History (formulary)] Fluticasone/Salmeterol [Advair 1 puff INHALATION RT-BID 05/09/17 08/03/17 History 250-50 Diskus] Famotidine [Pepcid] 20 mg PO QAM 05/13/17 08/03/17 History Benzonatate [Tessalon Perles] 100 mg PO TID 08/03/17 08/03/17 History Calcium Citrate/Vitamin D3 1 tab PO HS 08/03/17 08/03/17 History [Calcitrate + Vit D Caplet] Cranberry Fruit Extract [Cranberry] 1,000 mg PO DAILY 08/03/17 08/03/17 History Hemorrhodial Cream 1 applic RECTAL BID 08/03/17 08/03/17 History Hemorrhoidal Supp 1 suppositor RECTAL QID PRN 08/03/17 08/03/17 History Hydrocodone/Chlorphen P-Stirex 5 ml PO HS PRN 08/03/17 08/03/17 History [Tussionex] Ibuprofen [Motrin Ib] 400 mg PO Q6H PRN 08/03/17 08/03/17 History Methylcellulose (with Sugar) 8 gm PO DAILY 08/03/17 08/03/17 History [Citrucel Powder] Olmesartan Medoxomil [Benicar] 40 mg PO DAILY 08/03/17 08/03/17 History Allergies Allergy/AdvReac Type Severity Reaction Status Date / Time morphine AdvReac Itching Verified 08/03/17 13:00 naproxen [From Aleve] AdvReac Itching Verified 08/03/17 13:00 Physical Exam Vitals: Vital Signs Temp Pulse Resp BP BP BP BP 08/04/17 08:00 97.7 F 87 18 95/51 08/04/17 04:10 83 135/64 08/04/17 04:05 79 130/62 08/04/17 04:00 98.6 F 83 18 138/61 08/04/17 00:00 99.0 F 80 18 118/59 08/03/17 20:00 99.0 F 80 18 115/55 08/03/17 16:00 100.3 F H 87 18 80/46 08/03/17 13:45 99.1 F 82 18 88/52 Pulse Ox 08/04/17 08:00 97 08/04/17 04:10 08/04/17 04:05 08/04/17 04:00 97 08/04/17 00:00 98 08/03/17 20:00 95 08/03/17 16:00 93 L 08/03/17 13:45 95 Intake and Output 08/03/17 08/04/17 08/04/17 22:59 06:59 14:59 Intake Total 1999 200 Balance 1999 200 Intake: Intake, IV Titration 2000 Amount Sodium Chloride 0.9% 1, 1000 000 ml @ 75 mls/hr IV . [id number] [facility] Rx#:[id number] Sodium Chloride 0.9% 1, 1000 000 ml @ 999 mls/hr IV . Q1H1M ONE Rx#:[id number] Oral 200 Other: Voiding Method Toilet Toilet Toilet # Voids 1 # Bowel Movements 0 Weight 69.7 kg 69.7 kg - Constitutional General appearance: cooperative, no acute distress - EENT Eyes: anicteric sclerae, PERRLA, normal appearance, eyelid droopy on the right. Decreased vision on the right, chronic ENT: hearing grossly normal - Neck Neck: no lymphadenopathy, normal ROM, no other, no rigidity, no stridor, no thyromegaly - Respiratory Respiratory: bilateral: CTA, negative: diminished, dullness, rales, rhonchi - Cardiovascular Rhythm: regular Heart sounds: normal: S1, S2 Abnormal Heart Sounds: no systolic murmur, no diastolic murmur, no rub, no S3 Gallop, no S4 Gallop, no click, no other - Gastrointestinal General gastrointestinal: normal bowel sounds, soft - Integumentary Integumentary: no rash - Neurologic Neurologic: CNII-XII intact - Musculoskeletal Musculoskeletal: gait normal, strength equal bilaterally - Psychiatric Psychiatric: A&O x's 3, appropriate affect Results CBC & Chem 7: 08/03/17 10:06 08/03/17 10:06 Labs: Abnormal Lab Results - Last 24 Hours (Table) 08/03/17 08/03/17 Range/Units 18:17 21:32 Total Creatine Kinase <20 L <20 L (30-135) U/L Thrombosis Risk Factor Assmnt - DVT/VTE Prophylaxis DVT/VTE Prophylaxis: Pharmacologic Prophylaxis ordered - Choose All That Apply Each Risk Factor Represents 3 Points: Age 75 years or older Thrombosis Risk Factor Assessment Total Risk Factor Score: 3 Thrombosis Risk Factor Assessment Level: Moderate Risk Assessment and Plan Plan: #1 syncope likely vasovagal. Cardiogenic syncope ruled out. Telemetry with no signs of arrhythmia. Seizure is a possibility as they were movements of arms and legs noticed by the family after patient had syncope. confusion also noticed after patient passed out. She did not recall the incidents. EEG ordered. Neurology consult placed. Patient's blood pressure improved with IV fluids. PTOT consult for rehab. #2 hypertension hold losartan due to low blood pressure #3 dementia continue Aricept #4 GERD and GI prophylaxis continue Pepcid 20 mg by mouth daily #5 DVT prophylaxis with Lovenox 40 subcu daily Patient will be admitted to the hospital for a minimum of 2 nights a. CODE STATUS full code
[2017-08-04] MEDS ORDERED: ONDANSETRON 4 MG/2 ML VIAL IVP PRN (13:56)
[2017-08-04] MEDS ORDERED: ACETAMINOPHEN TAB 325 MG TAB PO PRN (13:56)
--- NOTE | 2017-08-04 18:51 | EEG ---
ELECTROENCEPHALOGRAM REPORT DATE OF SERVICE: 08/04/2017 REASON FOR TESTING: Syncope. DESCRIPTION OF THE PROCEDURE: This EEG was performed using a 21-channel digital electroencephalograph, following international 10-20 system. DESCRIPTION OF THE RECORDING: From the beginning of the tracing, and with the patient's eyes closed, the background rhythm was mostly consisting of 9-10 Hz alpha frequency in the posterior occipital leads. No obvious asymmetry is seen. Photic stimulation was performed with a minimal driving response seen. No pathological waves were elicited. Occasional movement artifacts are seen. Hyperventilation was not performed. The patient remains awake throughout the tracing. No epileptiform discharges were seen. Her EKG lead showed a regular rate and rhythm. INTERPRETATION: This awake EEG can be considered within normal limits. There was no asymmetry seen. No epileptiform discharges were noticed. The absence of epileptiform discharges does not rule out the diagnosis of epilepsy; therefore clinical correlation is recommended. MMJW / DONALD: [id number] /
[2017-08-04] MEDS: LORATADINE 10 MG TAB PO SCH (20:27)
[2017-08-04] MEDS: MONTELUKAST 10 MG TAB PO SCH (20:27)
[2017-08-04] MEDS: DONEPEZIL 10 MG TAB PO SCH (20:27)
[2017-08-04] MEDS: MELATONIN 3 MG TABLET PO SCH (20:27)
[2017-08-04] MEDS: CALCIUM CARB-VIT D 500MG-200UN 1 EACH TAB PO SCH (20:27)
[2017-08-04] MEDS: CITALOPRAM HYDROBROMIDE 20 MG TAB PO SCH (20:27)
--- NOTE | 2017-08-04 21:27 | CONS ---
CONSULTATION DATE OF CONSULTATION: 08/04/2017. CHIEF COMPLAINT: Syncope. HISTORY OF PRESENT ILLNESS: The patient is a pleasant 89-year-old female who is being evaluated by the neurology service per the request of Dr. Villalobos for a syncopal spell. The patient was at home with her caregiver who witnessed a syncopal episode. The patient was having nausea and felt like she needed to vomit and while she was vomiting in the toilet, she became very dizzy and lost consciousness. When the patient regained consciousness, she was back to her baseline cognitively but had difficulty standing back up. EMS was called and she was transferred to [facility] emergency room where she was found to be quite hypotensive with a blood pressure of 88/52. According to the family, the patient has not been her usual self since starting oral steroids recently mainly due to a recent pneumonia. A CT scan of the brain was done which showed no acute findings but there was evidence of small vessel ischemic changes. I did review her EEG which was normal. Her CBC and cardiac enzymes were negative. Her comprehensive metabolic profile was normal except for minimal hyponatremia at 134. Her urinalysis was normal. At the time of my evaluation, she is resting in her bed and appears to be in no acute distress. Her daughter was at bedside and according to her, she is back to her baseline. The patient denies any new neurological complaints. She does have chronic visual disturbance mainly affecting her right eye. According to the family, the patient's appetite has also been less then her normal self. PAST MEDICAL HISTORY: Asthma, dementia, gastroesophageal reflux disease, hypertension, recent pneumonia, retinal detachment, chronic right eye ptosis, history of cholecystectomy and appendectomy, history of depression. SOCIAL HISTORY: She denies any tobacco or alcohol or drug use. FAMILY HISTORY: Positive for heart disease and stroke. HOME MEDICATIONS: Reviewed in the chart. ALLERGIES: MORPHINE AND NAPROXEN. REVIEW OF SYSTEM: As mentioned above and otherwise negative. PHYSICAL EXAM: Vital signs: Vital signs show a temperature of 96.8, pulse 77, respirations 16, blood pressure 127/62. GENERAL APPEARANCE: The patient is a well-developed, elderly female, who appears to be in no acute distress. HEENT: Normocephalic, atraumatic. Eyes, right eyelid ptosis is seen. NECK: Supple with no masses felt. CARDIOVASCULAR: Regular rate and rhythm. ABDOMEN: Nontender nondistended. Extremities showed no edema or clubbing. Neurological exam the patient is alert aware and oriented x3. Speech and language are normal. Strength is full in all 4 extremities. Sensory exam was normal to light touch in all 4 extremities. Cranial nerve testing was normal except for right eyelid ptosis off. No tremors or seizure- like activity is seen. IMPRESSION: 1. Syncopal spell. 2. Hypotension. 3. Small vessel ischemic changes. RECOMMENDATION: The patient's syncopal episode is more consistent with a hypotensive spell. I doubt any epileptic etiology. Her EEG was reviewed and no epileptiform discharges were seen. Her CT scan of the brain showed no acute abnormalities. The patient was hypotensive on admission as she may have been dehydrated given her poor oral intake and recent nausea and vomiting. Continue IV hydration as tolerated. No further inpatient neurological workup is needed at this time. From a neurology standpoint, the patient is cleared for discharge. I do recommend a carotid Doppler. If she has not had 1 in the past 6 months. I will continue to follow with you as needed. Thank you for allowing me to participate in the care of your patient. If you have any questions, please feel free to contact me. Please send a copy of this dictation to Dr. Geo Mccabe and to Dr. Villalobos and to my office. MMNICOLAL / ELLENN: [id number] /
[2017-08-05 06:56] LABS: Basophils % (A) 0 %; Eosinophils # (A) 0.1 k/uL (0-0.7); Eosinophils % (A) 2 %; Lymphocytes # (A) 1.4 k/uL (1.0-4.8); Lymphocytes % (A) 40 %; MCH 28.3 pg (25.0-35.0); MCV 88.5 fL (80.0-100.0); Mean Platelet Volume 6.4; Monocytes # (A) 0.2 k/uL (0-1.0); Monocytes % (A) 7 %; Neutrophils # (A) 1.6 k/uL (1.3-7.7); Neutrophils % (A) 47 %; Platelet Count 209 k/uL (150-450); RBC 3.27 m/uL (3.80-5.40); RDW 14.2 % (11.5-15.5); WBC 3.5 k/uL (3.8-10.6)
[2017-08-05 07:26] LABS: ALT 38 U/L (9-52); AST 23 U/L (14-36); Albumin 2.5 g/dL (3.5-5.0); Alkaline Phosphatase 68 U/L (38-126); Anion Gap 6 mmol/L; Blood Urea Nitrogen 11 mg/dL (7-17); Calcium 8.2 mg/dL (8.4-10.2); Carbon Dioxide 27 mmol/L (22-30); Chloride 102 mmol/L (98-107); Glucose 89 mg/dL (74-99); Potassium 4.7 mmol/L (3.5-5.1); Sodium 135 mmol/L (137-145); Total Bilirubin 0.4 mg/dL (0.2-1.3); Total Protein 4.6 g/dL (6.3-8.2)
[2017-08-05 07:43] LABS: HGB 9.3 gm/dL (11.4-16.0)
--- NOTE | 2017-08-05 08:25 | P.PN ---
Subjective Progress Note Date: 08/05/17 Principal diagnosis: Syncope This is a pleasant 89-year-old female patient with a past medical history significant for hypertension as well as mild underlying dementia who resides in an extended care facility was brought to the hospital after she lost her consciousness there. The patient was in her usual state of health until yesterday when she was in the bathroom and she did have a witnessed syncopal episode. No symptoms of chest pain or discomfort around episodes, no dizziness or lightheadedness, and no feeling of heart racing or fluttering. When the patient presented to the hospital she was found to be slightly dehydrated and hypotensive and she received some IV fluid and we did an orthostatic blood pressure on her this morning and that came in to be unremarkable. Please note that the patient does have history of hypertension and she was receiving only started on 40 mg by mouth daily. Currently this is on hold. The EKG showed sinus rhythm without any significant ST or T-wave abnormalities. The cardiac enzymes were checked and came in to be unremarkable. The patient was monitored overnight. On follow-up with her today she is feeling overall better and she denies having any chest pain or discomfort or dizziness or lightheadedness or shortness of breath. No cardiac arrhythmia was seen overnight. The blood pressure seems to be within normal limits without taking the Benicar. The echocardiogram revealed normal LV function without any significant valvular abnormalities. Objective - Vital Signs Vital signs: Vital Signs Temp 97.6 F 08/05/17 04:00 Pulse 67 08/05/17 04:00 Resp 18 08/05/17 04:00 BP 123/63 08/05/17 04:00 Pulse Ox 96 08/05/17 04:00 Intake & Output 08/04/17 08/05/17 08/05/17 18:59 06:59 18:59 Intake Total 318 600 Balance 318 600 Weight 69.7 kg 69.8 kg Intake: IV 600 0.9 600 Oral 318 Other: Voiding Method Toilet Toilet # Voids 2 2 - Constitutional General appearance: Present: no acute distress - Respiratory Respiratory: bilateral: CTA - Cardiovascular Rhythm: regular Heart sounds: normal: S1, S2 - Labs CBC & Chem 7: 08/05/17 06:29 08/05/17 06:29 Labs: Abnormal Lab Results - Last 24 Hours (Table) 08/04/17 08/05/1718 Range/Units 14:19 06:29 06:29 WBC 3.5 L (3.8-10.6) k/uL RBC 3.27 L (3.80-5.40) m/uL Hgb 9.3 L D (11.4-16.0) gm/dL Hct 29.0 L (34.0-46.0) % Sodium 135 L (137-145) mmol/L Calcium 8.2 L (8.4-10.2) mg/dL Creatine Kinase <20 L (30-135) U/L Total Protein 4.6 L (6.3-8.2) g/dL Albumin 2.5 L (3.5-5.0) g/dL Assessment and Plan Assessment: Assessment #1 syncopal episode likely to be orthostatic hypotension versus vasovagal syncope #2 systemic hypertension #3 mild underlying dementia Plan #1 the patient did not have any cardiac arrhythmia overnight #2 the echocardiogram revealed normal LV function #3 I would suggest that the patient can be discharged home without the Benicar and monitor the blood pressure and restart the Benicar if needed to with a small dose as an outpatient Thank you for allowing us participate in her care.
[2017-08-05] MEDS: SYMBICORT 80-4.5 MCG INHALER INHALATION SCH (08:59)
[2017-08-05] MEDS ORDERED: ENOXAPARIN 40 MG/0.4 ML SYRINGE SQ SCH (09:00)
[2017-08-05] MEDS: PSYLLIUM HUSK 100% 6 GM PACKET PO SCH (09:36)
[2017-08-05] MEDS: MEMANTINE 10 MG TAB PO SCH (09:36)
[2017-08-05] MEDS: BENZONATATE 100 MG CAP PO SCH (09:36)
[2017-08-05] MEDS: MULTIVITAMINS, THERA 1 EACH TAB PO SCH (09:36)
[2017-08-05] MEDS: FAMOTIDINE 20 MG TAB PO SCH (09:36)
[2017-08-05 11:42] VITALS: BP 133/61; PULSE 70; TEMP 98.6
--- NOTE | 2017-08-05 12:40 | P.DS ---
Providers Date of admission: 08/03/17 12:48 Expected date of discharge: 08/05/17 Attending physician: Jae Villalobos MD Consults: 08/03/17 12:49 Consult Physician Urgent Consulting Provider: Chip Fowler Consult Reason/Comments: syncope Do you want consulting provider notified?: Yes 08/04/17 13:47 Consult Physician Routine Consulting Provider: Lety Ramos Consult Reason/Comments: Syncope, rule out seizure Do you want consulting provider notified?: Yes Primary care physician: Geo Mccabe [facility] Course: [facility] post[facility] she is a 89 years old female patient of Dr. Mccabe with past medical history of hypertension, mild dementia, asthma, hypertension was recently treated with pneumonia and was discharged on steroids. Patient completed her steroids one week ago. Family noticed increased anxiety attacks associated with decrease intake of fluid as well as solid food since her discharge last week. Family provides most of the history. According to the family issues and had an episode of nausea associated with vomiting followed by a passing out. Blood pressure on admission was 88/52 which improved with IV fluids. Blood pressure this morning was 95/51. Orthostatics obtained were negative. Patient continued to receive 75 mL/h of IV fluids overnight. Echo obtained. Cardiology evaluated the patient and rule out cardiogenic syncope. Telemetry negative for any arrhythmias overnight. Patient denies any chest pain, palpitations, motor or sensory deficits, any history of seizures. Family documents some movement of her extremities and passing out. Patient was confused and unable to hold herself when she woke up. Family states patient is currently not at her baseline. EEG ordered. Continue seizure precautions. Neurology consult to rule out possible seizures. 08/05: Echocardiogram reveals mild concentric left nuclear hypertrophy, EF 55-60% , mild aortic valve sclerosis, mild aortic regurgitation, mild mitral regurgitation, mild tricuspid regurgitation, no pulmonary hypertension. Patient evaluated by Dr. Lima and feels most likely orthostatic hypotension versus vasovagal. Blood pressure medicine is on hold. EEG is within normal limits. Patient has been evaluated by Dr. Ramos and feels syncopal episode most consistent with hypotensive spell and she has been cleared for discharge. Commode chair and toilet seat riser will be ordered to assist at home. PT has evaluated patient and recommends home with 24-hour care. Patient will be discharged home today in stable condition. Benicar will be resumed at a lower dose. Discharge diagnoses: 1. Syncope likely vasovagal secondary to hypotension related to dehydration. 2. Hypertension presenting with low blood pressure 3. Dementia 4. GERD Discharge plan: Return home with [facility] Impression and plan of care have been directed as dictated by the signing physician. Carmen Sutton nurse practitioner acting as scribe for signing physician. Patient Condition at Discharge: Good Plan - Discharge Summary Discharge Rx Participant: No New Discharge Prescriptions: New Olmesartan [Benicar] 20 mg PO DAILY #30 tab Continue Donepezil [Aricept] 10 mg PO HS Citalopram Hydrobromide [CeleXA] 20 mg PO HS Memantine [Namenda] 10 mg PO BID Multivitamins, Thera [Multivitamin (formulary)] 1 tab PO DAILY Montelukast [Singulair] 10 mg PO HS Cetirizine HCl [Zyrtec] 10 mg PO HS Albuterol Inhaler [Ventolin Hfa Inhaler] 2 puff INHALATION RT-QID PRN PRN Reason: Dyspnea Coconut Oil 2 tab PO DAILY Albuterol Nebulized [Ventolin Nebulized] 2.5 mg INHALATION RT-QID PRN PRN Reason: Shortness Of Breath Fluticasone/Salmeterol [Advair 250-50 Diskus] 1 puff INHALATION RT-BID Famotidine [Pepcid] 20 mg PO QAM Calcium Citrate/Vitamin D3 [Calcitrate + Vit D Caplet] 1 tab PO HS Cranberry Fruit Extract [Cranberry] 1,000 mg PO DAILY Hemorrhodial Cream 1 applic RECTAL BID Hemorrhoidal Supp 1 suppositor RECTAL QID PRN PRN Reason: SWELLING Hydrocodone/Chlorphen P-Stirex [Tussionex] 5 ml PO HS PRN PRN Reason: Cough Ibuprofen [Motrin Ib] 400 mg PO Q6H PRN PRN Reason: Pain Or Fever > 100.5 Methylcellulose (with Sugar) [Citrucel Powder] 8 gm PO DAILY Benzonatate [Tessalon Perles] 100 mg PO TID Discontinued Olmesartan Medoxomil [Benicar] 40 mg PO DAILY Discharge Medication List Citalopram Hydrobromide [CeleXA] 20 mg PO HS 11/09/13 [History] Donepezil [Aricept] 10 mg PO HS 11/09/13 [History] Memantine [Namenda] 10 mg PO BID 11/09/13 [History] Albuterol Inhaler [Ventolin Hfa Inhaler] 2 puff INHALATION RT-QID PRN 03/22/17 [ History] Albuterol Nebulized [Ventolin Nebulized] 2.5 mg INHALATION RT-QID PRN 03/22/17 [ History] Cetirizine HCl [Zyrtec] 10 mg PO HS 03/22/17 [History] Coconut Oil 2 tab PO DAILY 03/22/17 [History] Montelukast [Singulair] 10 mg PO HS 03/22/17 [History] Multivitamins, Thera [Multivitamin (formulary)] 1 tab PO DAILY 03/22/17 [History ] Fluticasone/Salmeterol [Advair 250-50 Diskus] 1 puff INHALATION RT-BID 05/09/17 [History] Famotidine [Pepcid] 20 mg PO QAM 05/13/17 [History] Benzonatate [Tessalon Perles] 100 mg PO TID 08/03/17 [History] Calcium Citrate/Vitamin D3 [Calcitrate + Vit D Caplet] 1 tab PO HS 08/03/17 [ History] Cranberry Fruit Extract [Cranberry] 1,000 mg PO DAILY 08/03/17 [History] Hemorrhodial Cream 1 applic RECTAL BID 08/03/17 [History] Hemorrhoidal Supp 1 suppositor RECTAL QID PRN 08/03/17 [History] Hydrocodone/Chlorphen P-Stirex [Tussionex] 5 ml PO HS PRN 08/03/17 [History] Ibuprofen [Motrin Ib] 400 mg PO Q6H PRN 08/03/17 [History] Methylcellulose (with Sugar) [Citrucel Powder] 8 gm PO DAILY 08/03/17 [History] Olmesartan [Benicar] 20 mg PO DAILY #30 tab 08/05/17 [Rx] Follow up Appointment(s)/Referral(s): [facility], [NON-STAFF] - Kim Molina MD [STAFF PHYSICIAN] - 1 Week (Family request to switch providers. ) Deven Lima MD [STAFF PHYSICIAN] - 08/21/17 1:45 pm Geo Mccabe MD [Primary Care Provider] - 1-2 days Patient Instructions/Handouts: Syncope (DC) Activity/Diet/Wound Care/Special Instructions: Patient will return to [facility] - [phone]; family to transport Discharge Disposition: HOME WITH HOME HEALTH SERVICES
== END 2017-08-05 14:01 | disposition home health service (06) | DRG 641 ==
LOC: EC 09:55 → 6SEL 12:48
PROVIDERS: ADMIT Internal Medicine; ATTEND Internal Medicine
DX: E86.0 Dehydration (principal); I95.9 Hypotension, unspecified; I08.3 Combined rheumatic disorders of mitral, aortic and tricuspid valves; F03.90 Unspecified dementia, unspecified severity, without behavioral disturbance, psychotic disturbance, mood disturbance, and anxiety; I45.10 Unspecified right bundle-branch block; K21.9 Gastro-esophageal reflux disease without esophagitis; I10 Essential (primary) hypertension; J45.909 Unspecified asthma, uncomplicated; F32.9 Major depressive disorder, single episode, unspecified; F41.9 Anxiety disorder, unspecified; H53.9 Unspecified visual disturbance; M25.562 Pain in left knee; H02.401 Unspecified ptosis of right eyelid; Z79.51 Long term (current) use of inhaled steroids; Z79.899 Other long term (current) drug therapy; Z87.01 Personal history of pneumonia (recurrent); Z90.49 Acquired absence of other specified parts of digestive tract; Z98.42 Cataract extraction status, left eye; Z98.41 Cataract extraction status, right eye; Z96.1 Presence of intraocular lens; Z88.5 Allergy status to narcotic agent; Z88.8 Allergy status to other drugs, medicaments and biological substances; Z82.49 Family history of ischemic heart disease and other diseases of the circulatory system; Z82.3 Family history of stroke; Z80.0 Family history of malignant neoplasm of digestive organs; Z84.1 Family history of disorders of kidney and ureter; Z80.42 Family history of malignant neoplasm of prostate; Z82.5 Family history of asthma and other chronic lower respiratory diseases; Z80.1 Family history of malignant neoplasm of trachea, bronchus and lung; Z83.49 Family history of other endocrine, nutritional and metabolic diseases
CPT/HCPCS: 36415; 70450; 71046; 80053; 81001; 82533; 82550; 82553; 83735; 84484; 85025; 85610; 85730; 93306; 94640; 95816; 96360; 99285